=== PATIENT | female | born 1945 | race Caucasian/White ===

== ENCOUNTER 2016-11-09 21:28 | Inpatient (IN) | payer MEDICARE, OTHER ==
[2016-11-09] MEDS ORDERED: Albuterol 2.5 MG/3 ML NEB.SOL* (0.083%) INH ONE (22:07)
[2016-11-09] MEDS ORDERED: Albuterol/Ipratropium NEB.SOL* Albuterol 2.5 MG/Ipratropium 0.5 MG 3 ML INH ONE (22:07)
[2016-11-09] MEDS ORDERED: methylPREDNISolone 125 MG* 2 ML VIAL IV ONE (22:07)
[2016-11-09] MEDS ORDERED: Azithromycin IV(*) 500 MG in NS 0.9% 250 ML* 250 ML IVPB ONE (22:08)
--- NOTE | 2016-11-09 22:16 | RAD ---
INDICATION: Short of breath COMPARISON: Chest x-ray November 23, 2004 TECHNIQUE: An AP portable view obtained at 2202 hours is submitted. FINDINGS: Bones/Soft Tissues: There are no acute bony findings. Cardiomediastinal: The cardiomediastinal silhouette is normal. Lungs: There is hyperinflation with chronic interstitial changes most prominent in the apices. There is no focal consolidation.. Pleura: There are no pleural effusions. Other: None IMPRESSION: HYPERINFLATION WITH CHRONIC APPEARING APICAL INTERSTITIAL CHANGE
[2016-11-09 22:24] LABS: Hematocrit 45 % (35-47); Hemoglobin 15.1 g/dl (12.0-16.0); Mean Corpuscular HGB Conc 33 g/dl (31-36); Mean Corpuscular Hemoglobin 31 pg (27-31); Mean Corpuscular Volume 94 fL (80-97); Mean Platelet Volume 7 um3 (7.4-10.4); Red Blood Count 4.82 10^6/ul (4.0-5.4); Red Cell Distribution Width 13 % (10.5-15); White Blood Count 10.3 10^3/ul (3.5-10.8)
[2016-11-09 22:38] LABS: Albumin 4.4 g/dL (3.2-5.2); BUN/Creatinine Ratio 19.8 (8-20); Calcium 9.8 mg/dL (8.6-10.3); EGFR African American 78.6 (>60); EGFR Non-African American 61.1 (>60); Globulin 3.2 g/dL (2-4); Total Bilirubin 0.3 mg/dL (0.2-1.0); Total Protein 7.6 g/dL (6.4-8.9)
[2016-11-09 22:56] LABS: Potassium 3.9 mmol/L (3.5-5.0)
--- NOTE | 2016-11-10 00:23 | ED ---
Ana Paula Rios Adam, scribed for Isiah Luque MD on 11/09/16 at 2211 . Shortness of Breath - HPI Summary HPI Summary: A 71 y/o female presents to the ED c/o SOB that worsened today. On arrival to ED room, patient's oxygen saturation was 88%. She denies CP, fever, or lower extremity edema. On Tuesday, patient saw PCP and was given Mucinex and Fluticasone and was also presumptively diagnosed with emphysema. She started the medication today because her symptoms worsened and they have not helped. PMHx is not very significant other than the possible new diagnosis. FHx is also not significant (mother of [place] at age 92). Patient has smoked cigarettes for 50+ years and currently still smokes. - History of Current Complaint Chief Complaint: EDShortnessOfBreath Time Seen by Provider: 11/09/16 21:51 Hx Obtained From: Patient, Family/Balance Bridge Inspector - Onset/Duration: Sudden Onset, Lasting Hours - Since today Timing: Constant Current Severity: Moderate Dyspnea At: Rest Aggrevating Factors: Nothing Associated Signs & Symptoms: Wheezing - Allergy/Home Medications Allergies/Adverse Reactions: Allergies Allergy/AdvReac Type Severity Reaction Status Date / Time No Known Allergies Allergy Verified 01/31/16 15:37 PMH/Surg Hx/FS Hx/Imm Hx Endocrine/Hematology History: Denies: Hx Diabetes Respiratory History: Reports: Hx Chronic Obstructive Pulmonary Disease (COPD) - Cancer History Hx Chemotherapy: No Hx Radiation Therapy: No - Surgical History Surgery Procedure, Year, and Place: 2 c sections, 5 ortho surgeries on R hand, LEFT EYE SURGERY (REMOVE SCAR TISSUE) 2014 Infectious Disease History: No Infectious Disease History: Denies: Traveled Outside the [place] in Last 30 Days - Family History Known Family History: Positive: Other - positive [facility] for URI Negative: Diabetes - Social History Alcohol Use: Occasionally Substance Use Type: Reports: None Smoking Status (MU): Light Every Day Tobacco Smoker Type: Cigarettes Amount Used/How Often: 1/2 ppd Length of Time of Smoking/Using Tobacco: 50+ years Have You Smoked in the Last Year: Yes Review of Systems Constitutional: Negative Negative: Fever Eyes: Negative ENT: Negative Negative: Chest Pain Positive: Shortness Of Breath Gastrointestinal: Negative Genitourinary: Negative Musculoskeletal: Negative Skin: Negative Neurological: Negative Psychological: Normal All Other Systems Reviewed And Are Negative: Yes Physical Exam - Summary Physical Exam Summary: General: Comfortable, pleasant, alert HEENT: Moist mucosa Neck: soft, supple, no adenopathy, no edema, mild JVD Heart: S1, S2, RRR, no murmurs, rubs, or gallops Lungs: Tachypnea, able to talk in 3/4 sentences, poor air movement throughout, wheezing, chest tightness Abdominal: Soft, flat, nontender Extremities: No edema, no calf tenderness Neuro: Alert and oriented x 3 Psych: Logical, coherent Vital Signs On Initial Exam: Initial Vitals Temp Pulse Resp BP Pulse Ox 96.7 F 97 20 175/75 94 11/09/16 21:31 11/09/16 21:31 11/09/16 21:31 11/09/16 21:31 11/09/16 21:31 Diagnostics - Vital Signs Vital Signs Temp Pulse Resp BP Pulse Ox 11/09/16 21:31 96.7 F 97 20 175/75 94 - Laboratory Lab Results: Lab Results 11/09/16 11/09/16 11/09/16 Range/Units 22:10 22:10 22:10 WBC 10.3 (3.5-10.8) 10^3/ul RBC 4.82 (4.0-5.4) 10^6/ul Hgb 15.1 (12.0-16.0) g/dl Hct 45 (35-47) % MCV 94 (80-97) fL MCH 31 (27-31) pg MCHC 33 (31-36) g/dl RDW 13 (10.5-15) % Plt Count 257 (150-450) 10^3/ul MPV 7 L (7.4-10.4) um3 Neut % (Auto) 53.0 (38-83) % Lymph % (Auto) 34.9 (25-47) % [place] % (Auto) 5.6 (1-9) % Eos % (Auto) 5.6 (0-6) % Baso % (Auto) 0.9 (0-2) % Absolute Neuts (auto) 5.4 (1.5-7.7) 10^3/ul Absolute Lymphs (auto) 3.6 (1.0-4.8) 10^3/ul Absolute Monos (auto) 0.6 (0-0.8) 10^3/ul Absolute Eos (auto) 0.6 (0-0.6) 10^3/ul Absolute Basos (auto) 0.1 (0-0.2) 10^3/ul Absolute Nucleated RBC 0.02 10^3/ul Nucleated RBC % 0.2 Sodium 135 (133-145) mmol/L Potassium 3.9 (3.5-5.0) mmol/L Chloride 102 (101-111) mmol/L Carbon Dioxide 26 (22-32) mmol/L Anion Gap 7 (2-11) mmol/L BUN 18 (6-24) mg/dL Creatinine 0.91 (0.51-0.95) mg/dL Est GFR ( Amer) 78.6 (>60) Est GFR (Non-Af Amer) 61.1 (>60) BUN/Creatinine Ratio 19.8 (8-20) Glucose 129 H (70-100) mg/dL Lactic Acid 1.2 (0.5-2.0) mmol/L Calcium 9.8 (8.6-10.3) mg/dL Total Bilirubin 0.30 (0.2-1.0) mg/dL AST 25 (13-39) U/L ALT 16 (7-52) U/L Alkaline Phosphatase 58 (34-104) U/L Troponin I 0.00 (<0.04) ng/mL B-Natriuretic Peptide ( - 100) pg/mL Total Protein 7.6 (6.4-8.9) g/dL Albumin 4.4 (3.2-5.2) g/dL Globulin 3.2 (2-4) g/dL Albumin/Globulin Ratio 1.4 (1-3) 11/09/16 Range/Units 22:10 WBC (3.5-10.8) 10^3/ul RBC (4.0-5.4) 10^6/ul Hgb (12.0-16.0) g/dl Hct (35-47) % MCV (80-97) fL MCH (27-31) pg MCHC (31-36) g/dl RDW (10.5-15) % Plt Count (150-450) 10^3/ul MPV (7.4-10.4) um3 Neut % (Auto) (38-83) % Lymph % (Auto) (25-47) % [place] % (Auto) (1-9) % Eos % (Auto) (0-6) % Baso % (Auto) (0-2) % Absolute Neuts (auto) (1.5-7.7) 10^3/ul Absolute Lymphs (auto) (1.0-4.8) 10^3/ul Absolute Monos (auto) (0-0.8) 10^3/ul Absolute Eos (auto) (0-0.6) 10^3/ul Absolute Basos (auto) (0-0.2) 10^3/ul Absolute Nucleated RBC 10^3/ul Nucleated RBC % Sodium (133-145) mmol/L Potassium (3.5-5.0) mmol/L Chloride (101-111) mmol/L Carbon Dioxide (22-32) mmol/L Anion Gap (2-11) mmol/L BUN (6-24) mg/dL Creatinine (0.51-0.95) mg/dL Est GFR ( Amer) (>60) Est GFR (Non-Af Amer) (>60) BUN/Creatinine Ratio (8-20) Glucose (70-100) mg/dL Lactic Acid (0.5-2.0) mmol/L Calcium (8.6-10.3) mg/dL Total Bilirubin (0.2-1.0) mg/dL AST (13-39) U/L ALT (7-52) U/L Alkaline Phosphatase (34-104) U/L Troponin I (<0.04) ng/mL B-Natriuretic Peptide 187 H ( - 100) pg/mL Total Protein (6.4-8.9) g/dL Albumin (3.2-5.2) g/dL Globulin (2-4) g/dL Albumin/Globulin Ratio (1-3) Result Diagrams: 11/09/16 22:10 11/09/16 22:10 Lab Statement: Any lab studies that have been ordered have been reviewed, and results considered in the medical decision making process. - Radiology CXR Xray Interpretation: No Acute Changes - HYPERINFLATION WITH CHRONIC APPEARING APICAL INTERSTITIAL CHANGE Radiology Interpretation Completed By: Radiologist Re-Evaluation - Re-Evaluation First Eval Re-Evaluation Time: 23:47 Change: Unchanged Comment: Going to commode bedside caused her to become SOB. 86% on room air with this simple maneuver. She became extremely winded and tachycardic. Course/Dx - Course Assessment/Plan: Last week she had cough/congestion. PCP suggested she may have COPD. There is definitely clear evidience of this on Xray and exam. Now she is quite winded, hypoxic, and tachycardic with only simple maneuvers. She is requiring oxygen and she is admitted for COPD exacerbation. We have considered PE and cardiac etiology, but she has no cardiac ischemic equivalents besides SOB and this was gradual onset and she has no risk factors for PE. - Diagnoses Provider Diagnoses: SOB (shortness of breath), Cough, Wheezing on expiration - Physician Notifications Discussed Care of Patient With: Dr. Taylor (23:45, Hospitalist) - Agrees to accept patient. Discharge - Discharge Plan Condition: Stable Disposition: ADMITTED TO [facility] Referrals: Jenn Barillas MD [Primary Care Provider] - The documentation as recorded by the Ana Paula woodall Adam accurately reflects the service I personally performed and the decisions made by me, Isiah Luque MD.
--- NOTE | 2016-11-10 02:41 | HP ---
H&P (Free Text) History and Physical: PCP: Justine Barillas MD Date/Time of Evaluation: 11/10/2016 0230 CC: SOB HPI: Mrs Greenwood is a 71YO female presenting with cough since July for which she has been seen by her PCP and treated for post-nasal drip which she has and ABX and prednisone for bronchitis without resolution. The symptoms have waxed and waned without F/C, N/V/D, palpitations, chest pain, or sweats. Yesterday, however, she started becoming SOB which accelerated in the evening prompting presentation for evaluation. She had been given an albuterol inhaler, but did not try it as she was uncertain how to use. In the ED she did report improvement with albuterol nebulizer. Though she continued to desaturate into the high 80s with minimal exertion and so admission was recommended. PMedHx negative PSurgHx section x2 ORIF R hip carpal tunnel release, R trigger finger release, R DeQuervain's release, R cataract extraction, OU SocHx: ~50PYHX smoking currently at 1/2PPD, minimal alcohol, no recreational drugs; lives with her , 2 adopted and 2 biological children; full code status FamHx: reviewed, non-contributory ROS: as above, otherwise reviewed and all were negative Constitutional: NAD, normally developed, well-nourished white female vitals: Vital Signs Temp 35.9 C 11/09/16 21:31 Pulse 81 11/10/16 02:00 Resp 22 11/10/16 02:00 BP 112/54 11/10/16 02:00 Pulse Ox 96 11/10/16 02:00 Intake & Output 11/09/16 11/09/16 11/10/16 11:59 23:59 11:59 Intake Total 250 Balance 250 Weight 108 lb Intake: IV Fluids 250 HEENM: atraumatic; sclera/conjunctiva: non-icteric/clear; blephara: normal; hearing: intact; oropharynx: clear, mucosa moist Neck: soft tissue: non-tender; thyroid: normal Pulmonary: clear to auscultation bilaterally, good aeration, no accessory muscle use CV: RR/RR, normal S1S2, no carotid bruit, no jugular venous distention, 2+ B DP/ PT, no edema Abdominal: soft, non-distended, non-tender, no rebound/guarding/rigidity, normoactive bowel sounds, no hepatosplenomegaly or masses, no costovertebral angle tenderness Musculoskeletal: general: grossly intact; gait: stable Integumental: normal appearance and texture Psychiatric orientation: AA&O to PPS affect: calm mood: pleasant eye contact: good content: reliable responses: timely insight: good Testing: Lab Results 11/09/16 11/09/16 11/09/16 Range/Units 22:10 22:10 22:10 WBC 10.3 (3.5-10.8) 10^3/ul RBC 4.82 (4.0-5.4) 10^6/ul Hgb 15.1 (12.0-16.0) g/dl Hct 45 (35-47) % MCV 94 (80-97) fL MCH 31 (27-31) pg MCHC 33 (31-36) g/dl RDW 13 (10.5-15) % Plt Count 257 (150-450) 10^3/ul MPV 7 L (7.4-10.4) um3 Neut % (Auto) 53.0 (38-83) % Lymph % (Auto) 34.9 (25-47) % [place] % (Auto) 5.6 (1-9) % Eos % (Auto) 5.6 (0-6) % Baso % (Auto) 0.9 (0-2) % Absolute Neuts (auto) 5.4 (1.5-7.7) 10^3/ul Absolute Lymphs (auto) 3.6 (1.0-4.8) 10^3/ul Absolute Monos (auto) 0.6 (0-0.8) 10^3/ul Absolute Eos (auto) 0.6 (0-0.6) 10^3/ul Absolute Basos (auto) 0.1 (0-0.2) 10^3/ul Absolute Nucleated RBC 0.02 10^3/ul Nucleated RBC % 0.2 Sodium 135 (133-145) mmol/L Potassium 3.9 (3.5-5.0) mmol/L Chloride 102 (101-111) mmol/L Carbon Dioxide 26 (22-32) mmol/L Anion Gap 7 (2-11) mmol/L BUN 18 (6-24) mg/dL Creatinine 0.91 (0.51-0.95) mg/dL Est GFR ( Amer) 78.6 (>60) Est GFR (Non-Af Amer) 61.1 (>60) BUN/Creatinine Ratio 19.8 (8-20) Glucose 129 H (70-100) mg/dL Lactic Acid 1.2 (0.5-2.0) mmol/L Calcium 9.8 (8.6-10.3) mg/dL Total Bilirubin 0.30 (0.2-1.0) mg/dL AST 25 (13-39) U/L ALT 16 (7-52) U/L Alkaline Phosphatase 58 (34-104) U/L Troponin I 0.00 (<0.04) ng/mL B-Natriuretic Peptide ( - 100) pg/mL Total Protein 7.6 (6.4-8.9) g/dL Albumin 4.4 (3.2-5.2) g/dL Globulin 3.2 (2-4) g/dL Albumin/Globulin Ratio 1.4 (1-3) //17 Range/Units 22:10 WBC (3.5-10.8) 10^3/ul RBC (4.0-5.4) 10^6/ul Hgb (12.0-16.0) g/dl Hct (35-47) % MCV (80-97) fL MCH (27-31) pg MCHC (31-36) g/dl RDW (10.5-15) % Plt Count (150-450) 10^3/ul MPV (7.4-10.4) um3 Neut % (Auto) (38-83) % Lymph % (Auto) (25-47) % [place] % (Auto) (1-9) % Eos % (Auto) (0-6) % Baso % (Auto) (0-2) % Absolute Neuts (auto) (1.5-7.7) 10^3/ul Absolute Lymphs (auto) (1.0-4.8) 10^3/ul Absolute Monos (auto) (0-0.8) 10^3/ul Absolute Eos (auto) (0-0.6) 10^3/ul Absolute Basos (auto) (0-0.2) 10^3/ul Absolute Nucleated RBC 10^3/ul Nucleated RBC % Sodium (133-145) mmol/L Potassium (3.5-5.0) mmol/L Chloride (101-111) mmol/L Carbon Dioxide (22-32) mmol/L Anion Gap (2-11) mmol/L BUN (6-24) mg/dL Creatinine (0.51-0.95) mg/dL Est GFR ( Amer) (>60) Est GFR (Non-Af Amer) (>60) BUN/Creatinine Ratio (8-20) Glucose (70-100) mg/dL Lactic Acid (0.5-2.0) mmol/L Calcium (8.6-10.3) mg/dL Total Bilirubin (0.2-1.0) mg/dL AST (13-39) U/L ALT (7-52) U/L Alkaline Phosphatase (34-104) U/L Troponin I (<0.04) ng/mL B-Natriuretic Peptide 187 H ( - 100) pg/mL Total Protein (6.4-8.9) g/dL Albumin (3.2-5.2) g/dL Globulin (2-4) g/dL Albumin/Globulin Ratio (1-3) ECG, personally reviewed: NSR, RBBB rate 87, no ischemia CXR, personally reviewed: IMPRESSION: HYPERINFLATION WITH CHRONIC APPEARING APICAL INTERSTITIAL CHANGE Impression: 71F presenting with a COPD exacerbation DIAGNOSIS & PLAN Primary COPD exacerbation : albuterol nebs : mometasone/formoterol : tiotropium : IV methylprednisolone : azithromycin PO : guaifenesin : incentive spirometry : supplemental oxygen : supportive care Admission Rational: inpatient for management of COPD exacerbation and close monitoring for decompensation, inappropriate for outpatient setting DVTp: heparin SQ Code Status: full HCP:
[2016-11-10] MEDS ORDERED: Nicotine Inhaler* 10 MG AMP INH PRN (05:35)
[2016-11-10] MEDS ORDERED: CMC:Melatonin (NF) 3 MG TAB PO PRN (05:35)
[2016-11-10] MEDS ORDERED: Albuterol 2.5 MG/3 ML NEB.SOL* (0.083%) INH PRN (05:35)
[2016-11-10] MEDS ORDERED: Acetaminophen TAB* 325 MG PO PRN (05:35)
[2016-11-10] MEDS ORDERED: Ondansetron INJ* 2 MG/ML VIAL IV PRN (05:36)
[2016-11-10] MEDS ORDERED: traMADol TAB* 50 MG PO PRN (05:36)
[2016-11-10] MEDS ORDERED: Mouth Piece, Nicotine* 1 EACH CARTRIDGE INH ONE (06:05)
[2016-11-10] MEDS: Omeprazole CAP* 20 MG PO SCH (06:32)
[2016-11-10] MEDS ORDERED: Spiriva Inhaler DEVICE* 1 EACH DEVICE INH ONE (08:00)
[2016-11-10] MEDS: Albuterol 2.5 MG/3 ML NEB.SOL* (0.083%) INH SCH ×3 (08:12→20:08)
[2016-11-10] MEDS: Tiotropium CAP.INH* CAP.INH/18 MCG (USE ORDER SET !) INH SCH (08:13)
[2016-11-10] MEDS: Mometasone/Formoter 200/5 MDI INH SCH ×2 (08:17→20:34)
[2016-11-10] MEDS: Aspirin EC Low Dose* 81 MG TAB.EC PO SCH (08:43)
[2016-11-10] MEDS: Docusate CAP* 100 MG PO SCH ×2 (08:44→20:06)
--- NOTE | 2016-11-10 19:54 | PN ---
Hospitalist Progress Note HOSPITALIST ADDENDUM Patient seen and examined at bedside. She feels much better today, still with some dyspnea, but improved. Chest: BS+ bilaterally with scattered wheeze on the left. A/P: Acute COPD exacerbation secondary to bronchitis. Continue current management.
[2016-11-11] MEDS: Albuterol 2.5 MG/3 ML NEB.SOL* (0.083%) INH SCH ×3 (00:53→12:19)
[2016-11-11] MEDS ORDERED: Heparin VIAL(*) 5000 UNITS/ML VIAL (FIVE THOUSAND) SUBCUT SCH (06:00)
[2016-11-11] MEDS: Omeprazole CAP* 20 MG PO SCH (07:17)
[2016-11-11] MEDS: Tiotropium CAP.INH* CAP.INH/18 MCG (USE ORDER SET !) INH SCH (07:24)
[2016-11-11] MEDS: Mometasone/Formoter 200/5 MDI INH SCH (07:24)
[2016-11-11] MEDS: Docusate CAP* 100 MG PO SCH (08:23)
[2016-11-11] MEDS: Aspirin EC Low Dose* 81 MG TAB.EC PO SCH (08:56)
[2016-11-11] MEDS ORDERED: methylPREDNISolone SOD 40 MG* 1 ML VIAL IV SCH (09:00)
[2016-11-11 12:25] VITALS: BP 146/76
--- NOTE | 2016-11-12 12:41 | DS ---
DISCHARGE SUMMARY: DATE OF ADMISSION: 11/10/16 DATE OF DISCHARGE: 11/11/16 PRIMARY CARE PROVIDER: Dr. Barillas. DISCHARGE DIAGNOSIS: Acute chronic obstructive pulmonary disease exacerbation secondary to bronchitis. SECONDARY DIAGNOSIS: Tobacco abuse. MEDICATION LIST: 1. Multivitamin 1 tablet p.o. daily. 2. Fluticasone nasal spray 1 spray to both nares daily. 3. Aspirin 81 mg p.o. daily. New medications: 1. Prednisone taper as follows, 40 mg p.o. daily for 3 days, then 30 mg for 3 days, 20 mg for 3 days, 10 mg for 3 days, 5 mg for 3 days, and stop. 2. Spiriva 1 capsule inhaled daily. 3. Nicotine patch 21 mg topical daily, remove at bedtime. 4. Nicotine inhaler 10 mg inhaled q. 2 hours p.r.n. cravings. 5. Advair 250/50 one puff inhaled b.i.d. 6. Albuterol HFA 2 puffs inhaled q. 6 hours as needed for shortness of breath. HOSPITAL COURSE: Ms. Greenwood is a 71-year-old lady with a past medical history as stated above, who presented to the emergency room on November 09 with complaint of shortness of breath and cough. She has had respiratory symptoms since July on and off that started with upper respiratory symptoms including nasal congestion, postnasal drip, and the symptoms have waxed and waned. She had been treated with azithromycin and prednisone as outpatient with some relief , but the day of admission, the shortness of breath became more intense and prompted the ED visit. For more details about her presentation, I refer you to her history and physical. In the emergency room, the patient had a chest x-ray that showed hyperinflation with chronic appearing apical interstitial change. The impression was that she had an acute COPD exacerbation secondary to bronchitis. She did not appear to be infected at this time and she responded well to steroids and bronchodilators. She does not require supplemental oxygen and has had significant improvement of her cough and dyspnea. At this time, she will be discharged home to complete the steroid taper. She will have long-acting and short-acting beta-agonist inhaled steroids and anticholinergic drugs and when this episode is resolved, the patient would benefit of spirometry as outpatient and I also believe that with her smoking history of more than [address] years, a CT of the chest is also indicated. The patient was counseled about tobacco cessation and she is willing to try. She is being discharged with nicotine patch and nicotine inhaler as she is motivated at this time to succeed. She is medically stable at this time, to follow up with Dr. Barillas as an outpatient. PHYSICAL EXAMINATION: Vital Signs: Temperature 98.1, heart rate is 76, respiratory rate is 14, oxygen saturation 99% on room air, blood pressure is 146 /76. General: The patient is a pleasant lady, sitting up in bed, in no acute distress. CVS: Normal S1, S2. Regular rate and rhythm. Chest: Breath sounds present bilaterally decreased with no added sounds. Abdomen: Soft. Bowel sounds present. Extremities: No edema. Neuro: She is alert, awake, and oriented x3. Able to move all 4 extremities. DIET: Regular diet. ACTIVITY: As tolerated. DISPOSITION: To home. STATUS WHILE IN THE HOSPITAL: Observation. Please keep in mind that this is a summarized version of this patient's hospital stay. If you need more information, please feel free to call me at or please obtain the full medical records. TIME SPENT: Approximately 45 minutes was spent to complete this discharge. CC: Dr. Barillas * [id number]/CPS #: [id number] [place]
== END 2016-11-11 14:15 | disposition home or self-care (01) | DRG 192 ==
LOC: ED 21:28 → MEDTELE 11-10 05:34 → MED 11-10 16:40
PROVIDERS: ADMIT Hospitalist; ATTEND Internal Medicine
DX: J44.1 Chronic obstructive pulmonary disease with (acute) exacerbation (principal); F17.210 Nicotine dependence, cigarettes, uncomplicated; J20.9 Acute bronchitis, unspecified; J44.0 Chronic obstructive pulmonary disease with (acute) lower respiratory infection; Z82.49 Family history of ischemic heart disease and other diseases of the circulatory system; Z98.42 Cataract extraction status, left eye; Z98.41 Cataract extraction status, right eye; Z79.82 Long term (current) use of aspirin
CPT/HCPCS: 36415; 71010; 80053; 83605; 83880; 84484; 85025; 93005; 94640; 94760; 99406; A9270-GY; J0456; J1644; J2920; J2930

== ENCOUNTER 2017-05-09 12:13 | Emergency (ER) | payer MEDICARE, OTHER ==
[2017-05-09 13:49] VITALS: BP 145/89
--- NOTE | 2017-05-09 14:39 | RAD ---
HISTORY: Trigger finger COMPARISONS: None VIEWS: 3, Frontal, lateral, and oblique views of the digit of the left hand FINDINGS: Evaluation is limited as of the fourth PIP joint is held in flexion. BONE DENSITY: Normal. BONES: There is no displaced fracture. JOINTS: There is osteoarthritis of the interphalangeal joints. ALIGNMENT: There is no dislocation. The fourth PIP joint is held in flexion. SOFT TISSUES: Unremarkable. OTHER FINDINGS: None. IMPRESSION: 1. LIMITED STUDY. 2. THE FOURTH PIP JOINT IS HELD IN FLEXION. 3. OSTEOARTHRITIS OF THE INTERPHALANGEAL JOINTS. 4. NO ACUTE OSSEOUS INJURY. IF SYMPTOMS PERSIST, RECOMMEND REPEAT IMAGING
[2017-05-09] MEDS ORDERED: Lidocaine 2% PF * 5 ML VIAL INJ ONE (15:05)
--- NOTE | 2017-05-09 16:14 | RAD ---
Indication: Post reduction LEFT trigger finger. Comparison: Prereduction exam of the same date. Technique: AP, lateral, and oblique views of the LEFT fourth finger. Report: Restored anatomic alignment post reduction. Negative for fracture. Bone density appears decreased corresponding with osteoporosis on prior 2010 DEXA scan. Mild osteoarthritis at the visualized interphalangeal joints. Unremarkable soft tissue contours. IMPRESSION: Restored alignment postreduction. Negative for fracture.
--- NOTE | 2017-05-09 17:05 | UC ---
Hand/Wrist HPI - HPI Summary HPI Summary: TRIGGER FINGER LEFT RING FINGER. HAS HAD TRIGGER FINGER CONCERNS FOR 18 YEARS. OVER THE LAST TWO DAYS, HAS BEEN UNABLE TO UNFLEX LEFT 4TH FINGER. CALLED DR MILLER'S OFFICE WAS TOLD TO COME HERE AND TO GET XRAY. - History Of Current Complaint Chief Complaint: UCUpperExtremity Stated Complaint: HAND COMPLAINT Time Seen by Provider: 05/09/17 13:51 Hx Obtained From: Patient Onset/Duration: Sudden Onset, Lasting Days, Still Present Severity Initially: Moderate Severity Currently: Moderate Pain Intensity: 4 Pain Scale Used: 0-10 Numeric Character Of Pain: Sharp, Aching Aggravating Factor(s): Movement, Extension, Twisting, Pulling Alleviating: Nothing Associated Signs And Symptoms: Positive: Negative Related History: Dominant Hand Right - Allergies/Home Medications Allergies/Adverse Reactions: Allergies Allergy/AdvReac Type Severity Reaction Status Date / Time No Known Allergies Allergy Verified 01/31/16 15:37 PMH/Surg Hx/FS Hx/Imm Hx Previously Healthy: Yes - Surgical History Surgical History: Yes Surgery Procedure, Year, and Place: 2 c sections, 5 ortho surgeries on R hand, LEFT EYE SURGERY (REMOVE SCAR TISSUE) 2015. Right hip surgury 2002 - Family History Known Family History: Positive: Other - positive [facility] for URI Negative: Diabetes - Social History Occupation: Retired Lives: With Family Alcohol Use: None Substance Use Type: None Smoking Status (MU): Former Smoker Type: Cigarettes Amount Used/How Often: 1/2 ppd Length of Time of Smoking/Using Tobacco: 53 years Have You Smoked in the Last Year: Yes - Immunization History Most Recent Influenza Vaccination: "long time ago" Most Recent Tetanus Shot: unk Most Recent Pneumonia Vaccination: never Review of Systems Constitutional: Negative Skin: Negative Eyes: Negative ENT: Negative Respiratory: Negative Cardiovascular: Negative Gastrointestinal: Negative Genitourinary: Negative Motor: Negative Neurovascular: Negative Musculoskeletal: Arthralgia - LEFT 4TH FINGER, Myalgia - LEFT 4TH FINGER Neurological: Negative Psychological: Negative All Other Systems Reviewed And Are Negative: Yes Physical Exam Triage Information Reviewed: Yes Appearance: Well-Appearing, No Pain Distress, Well-Nourished Vital Signs: Initial Vital Signs Temp 98 F 05/09/17 13:45 Pulse 76 05/09/17 13:45 Resp 16 05/09/17 13:45 BP 145/89 05/09/17 13:45 Pulse Ox 98 05/09/17 13:45 Vital Signs Reviewed: Yes Eye Exam: Normal ENT Exam: Normal ENT: Positive: Normal ENT inspection, Hearing grossly normal, TMs normal Dental Exam: Normal Neck exam: Normal Neck: Positive: Supple, Nontender Respiratory Exam: Normal Respiratory: Positive: Chest non-tender, Lungs clear, Normal breath sounds, No respiratory distress, No accessory muscle use Cardiovascular Exam: Normal Cardiovascular: Positive: RRR, No Murmur, Pulses Normal Abdominal Exam: Normal Musculoskeletal: Positive: Strength Limited @ - LEFT 4TH FINGER TRIGGER FINGER, ROM Limited @ - LEFT 4TH FINGER Neurological Exam: Normal Psychological Exam: Normal Skin Exam: Normal Procedures - Procedure Summary Procedure Summary: REDUCTION OF LEFT 4TH FINGER TRIGGER FINGER USING DIGITAL BLOCK (2% LIDO) AND MANUAL EXTENSION; PATIENT SPLINTED AFTER PROCEDURE Hand/Wrist Course/Dx - Differential Dx/Diagnosis Differential Diagnosis/HQI/PQRI: Fracture, Sprain, Strain, Tendonitis Provider Diagnoses: LEFT FOURTH FINGER TRIGGER FINGER WITH REDUCTION Discharge - Discharge Plan Condition: Stable Disposition: HOME Patient Education Materials: Trigger Finger (ED) Referrals: Jenn Barillas MD [Primary Care Provider] - Chelsey Miller MD [Medical Doctor] -
== END 2017-05-09 16:41 | disposition home or self-care (01) ==
LOC: UCEAST 12:13
DX: M65.342 Trigger finger, left ring finger (principal); Z87.891 Personal history of nicotine dependence
CPT/HCPCS: 26720; 73140; 99212; G0463

== ENCOUNTER 2017-05-13 06:29 | Day surgery (SDC) | payer MEDICARE, OTHER ==
--- NOTE | 2017-05-11 15:52 | HP ---
PREOPERATIVE HISTORY AND PHYSICAL: DATE OF ADMISSION/SURGERY: 05/13/17 DATE OF OFFICE VISIT/ENCOUNTER: 05/11/17 ATTENDING SURGEON: Chelsey Moralez MD * (DICTATED BY ENMANUEL MENDOZA) PROCEDURE: Left ring finger trigger finger release, ganglion cyst excision. CHIEF COMPLAINT: Left ring finger triggering, cyst. HISTORY OF PRESENT ILLNESS: This is a 71-year-old female, who complains of triggering in her left ring finger for approximately 17 years. She has managed it conservatively but it has worsened over time and recently the finger got stuck in a flexed position and the patient ended up going to convenient care to have the finger anesthetized and straightened. She has been wearing a splint on the finger for a couple of days, which helped to make the finger feel better. She has had trigger finger releases performed on the right hand and the symptoms in her left ring finger are significant enough that she would like to proceed with surgical intervention to correct the problem. She is also complaining of a small cyst in the area of the flexor tendon near the A1 konrad. She would also like to have that removed. She has consented to proceed with surgery. PAST MEDICAL HISTORY: Significant for COPD. PAST SURGICAL HISTORY: 1. x2. 2. Right carpal tunnel release. 3. Right de Quervain's release. 4. Right hand finger trigger finger releases. 5. Tonsillectomy. 6. Bilateral cataract surgery. CURRENT MEDICATIONS: 1. Albuterol sulfate nebulizer 1 treatment q.4 hours p.r.n. 2. Aspirin low dose 81 mg 1 tab daily. 3. Flonase Allergy Relief 50 mcg/ACT 1 spray each nostril twice daily. 4. Multivitamin daily. 5. Spiriva HandiHaler 18 mcg 1 unit inhalation daily. 6. Symbicort 80/4.5 mcg/ACT 2 puffs twice a day. ALLERGIES: No known drug allergies. FAMILY MEDICAL HISTORY: Significant for heart disease and hypertension. SOCIAL HISTORY: The patient is retired. 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 She is a former smoker; she quit in October of 2002 after being diagnosed with COPD. Prior to that, she smoked for 53 years. She denies recreational drug use. She does admit to alcohol use on occasion. REVIEW OF SYSTEMS: General: Negative for fevers, chills, or night sweats. No known anesthesia problems. HEENT: Negative for headache, lightheadedness, or syncopal episodes. Integumentary: Negative for abrasions, lesions, or open wounds. Cardiothoracic: Negative for hypertension, chest pain, palpitations, or edema. Pulmonary: Positive for shortness of breath with exertion and COPD. Negative for chronic cough. GI: Negative for nausea, vomiting, diarrhea, constipation, or GERD. : Negative for nocturia, urinary frequency, urgency, history of UTIs, or kidney problems. Musculoskeletal: Positive for current complaint. Negative for chronic or intermittent back pain or history of fractures. Neurological: Negative for paresthesias, numbness, history of seizure, stroke, or epilepsy. Endocrine: Negative for diabetes or thyroid issues. Hematologic: Negative for easy bruising, anemia, excessive bleeding, or history of DVT. Infectious Disease: Negative for history of MRSA, hepatitis C, or HIV. PHYSICAL EXAMINATION GENERAL: Well-developed, well-nourished, 71-year-old female in no acute distress. VITAL SIGNS: Height is 5 feet, weight 130 pounds, pulse rate 72, blood pressure 134/84. HEENT: Normocephalic, atraumatic. Pupils are equal, round, and reactive to light and accommodation. Extraocular movements are intact. NECK: Supple. No palpable lymph nodes. Throat is clear. PULMONARY: Lungs are clear to auscultation bilaterally. No wheezes, rales, or rhonchi. CARDIOVASCULAR: Regular rate and rhythm. S1, S2. No murmurs, rubs, or gallops. No edema. ABDOMEN: Positive bowel sounds, soft, nontender. MUSCULOSKELETAL: On exam of her left ring finger, there is mild swelling along the length of the finger. Tender to palpation at the A1 konrad and there is a palpable small cyst in that area as well that is very tender. The patient has difficulty flexing the finger but does have full extension. Neurovascular function is intact. NEUROLOGICAL: Alert and oriented x3. Cranial nerves II through XII are intact. Sensation is intact to light touch. DIAGNOSTIC DATA: Imaging studies of the left ring finger are unremarkable for any osseous abnormalities, no sign of fracture or dislocation. IMPRESSION: Left ring finger trigger finger, ganglion cyst. PLAN: The patient is scheduled to undergo a left ring finger trigger finger release, ganglion cyst excision with Dr. Moralez on 07/28/17. She will return to the office 10 to 14 days postop for followup and suture removal. A prescription for Ultracet was e-scribed to the patient's pharmacy for postoperative pain management. ENMANUEL MENDOZA [id number]/[facility] #: [id number] MTDZach
[~2017-05-13 06:29] MED LIST: Buffered Lidocaine 0.9% SYRIN* 5 ML/SYR SYRINGE INTRADERM ONE
[2017-05-13] MEDS ORDERED: Buffered Lidocaine 0.9% SYRIN* 5 ML/SYR SYRINGE ONE (06:40)
[2017-05-13] MEDS ORDERED: Lidocaine 1% INJ* 10 MG/ML 30 ML SDV ONE (07:19)
[2017-05-13] MEDS ORDERED: Lidocaine 2% PF * 5 ML VIAL ONE (07:46)
[2017-05-13] MEDS ORDERED: Propofol* 10 MG/ML 20 ML BTL IV PUSH ONE (07:46)
[2017-05-13] MEDS ORDERED: fentaNYL* 50 MCG/ML 2 ML VIAL (100 MCG VIAL) ONE (07:47)
[2017-05-13 08:22] VITALS: BP 126/74
--- NOTE | 2017-05-14 04:26 | OP ---
DATE OF OPERATION: 05/13/17 [facility] DATE OF : 47 SURGEON: Chelsey Moralez MD PAEDIATRICIAN: ENMANUEL Vargas ANESTHESIA: Local MAC. PRE-OP DIAGNOSIS: Trigger finger and ganglion cyst of the left ring finger. POST-OP DIAGNOSIS: Trigger finger and ganglion cyst of the left ring finger. OPERATIVE PROCEDURE: Trigger finger release, ganglion cyst excision, left ring finger. ESTIMATED BLOOD LOSS: Zero. TOURNIQUET TIME: About 10 minutes. INDICATIONS FOR PROCEDURE: Rowan is a 71-year-old female who has painful locking and a painful mass in her left ring finger. She presents for trigger finger release and ganglion cyst excision. DESCRIPTION OF PROCEDURE: The patient was brought to the operating room, was given a sedation anesthetic and a local infiltration of 10 cc of 1% plain lidocaine in the palm of her left hand. The skin of the left hand and forearm was prepped and draped in the usual sterile fashion. The hand and forearm were exsanguinated and the tourniquet elevated to 250 mmHg. A Chevron incision was made, centered over the A1 konrad and the mass. We dissected bluntly through the subcutaneous tissue. There was a ganglion cyst emanating from the flexor tendon sheath. It was removed with a small portion of the tendon sheath. The A1 konrad was then incised completely releasing the tendons, which had some abrasion as a result of the long- term triggering. The wound was irrigated and the skin edges were reapproximated with 4-0 nylon suture. The wound was dressed with Xeroform, 4x4, Webril, and an Brayan wrap. The patient tolerated the procedure well, was brought to the recovery room in good condition. [id number]/[facility] #: [id number] [facility]
== END 2017-05-13 08:43 | disposition home or self-care (01) ==
LOC: OREAST 06:29
PROVIDERS: ATTEND Orthopaedic Surgery
DX: M67.442 Ganglion, left hand (principal); M65.342 Trigger finger, left ring finger; J44.9 Chronic obstructive pulmonary disease, unspecified; Z87.891 Personal history of nicotine dependence
CPT/HCPCS: 88304; J2001; J2704; J3010

== ENCOUNTER 2018-11-25 16:30 | Emergency (ER) | payer MEDICARE ==
--- OUTSIDE RECORDS SUMMARY | 2018-11-25 16:54 | XMS REPORT | Continuity of Care Document ---
:1945 External Reference #:[id number] Author Name Miguelina Hankins PA-C Address [address] [facility] [place] [address] Care Team Providers Name Role Phone Jenn Barillas MD Care Team Information Journeyman Electrician Pv Installer Unavailable Jenn Barillas MD Primary Care Physician Unavailable Payers Type Date Identification Numbers Payment Provider Subscriber Policy Number: [id number] [employer] Medicare Open Rowan Greenwood PayID: [id number] [address] [place] [address] Advance Directives Description No Information Available Problems Date Description Provider Status Onset: 10/24/2018 Left upper quadrant pain Miguelina Hankins PA-C Active Onset: 10/24/2018 Epigastric pain Miguelina Hankins PA-C Active Family History Description No Information Available Social History Type Date Description Comments Sex Unknown Tobacco Use Start: Unknown End: Unknown Patient is a former smoker Smoking Status Reviewed: 10/24/18 Patient is a former smoker Allergies, Adverse Reactions, Alerts Description No Known Drug Allergies Medications Medication Date Status Form Strength Qnty SIG Indications Ordering Provider Omeprazole 10/24/ Active Capsules DR 20mg 30caps 1 cap by R10.13 Isael 2019 mouth Arnaldo, daily 30 DO minutes before breakfast Albuterol / Active Nebulizer 0.63mg/3ML Inhale The Unknown Sulfate 0000 Contents Of 1 Vial Via Nebulizer Two Times Daily Incruse / Active Aerosol 62.5mcg/In Inhale 1 Unknown Ellipta 0000 h puff By Mouth Every Day Symbicort / Active Aerosol 80-4.5mcg/ Inhale 2 Unknown 0000 Act Puffs By Mouth Two Times Daily Ventolin HFA / Active Aerosol 108(90Base Inhale 2 Unknown 0000 ) mcg/Act Puffs By Mouth Every 4 To 6 Hours as Needed Fluticasone / Active Suspension 50mcg/Act Coy 2 Unknown Propionate 0000 Sprays Into Each Nostril Every Day Omeprazole / Hx Capsules DR 20mg Take 1 Unknown 0000 - Capsule By 2019 Every Day Immunizations Description No Information Available Vital Signs Date Vital Result Comment 10/24/2018 10:36am Height 60 inches 5'0" Weight 146.00 lb BP Systolic 140 mmHg BP Diastolic 84 mmHg Heart Rate 68 /min BMI (Body Mass Index) 28.5 kg/m2 Results Test Date Facility Test Result H/L Range Note Laboratory test 10/24/2018 [facility] [place] Pylori Negative Negative 1 finding Antigen- Stool 1 Test Performed by: [address] [address] Procedures Description No Information Available Encounters Description No Information Available Plan of Treatment 10/24/2018 - ENMANUEL Petty-CR10.13 Epigastric painNew Medication: Omeprazole 20 mg - 1 cap by mouth daily 30 minutes before lwxfvppanG57.12 Left upper quadrant pain
--- NOTE | 2018-11-25 20:20 | ED ---
GI/ HPI - HPI Summary HPI Summary: This patient is a 73 year old F presenting to [facility] accompanied by her , Travon, with a chief complaint of worsening intermittent, sharp, right-sided flank pain radiating to her back since this afternoon. The pain lasts for about three seconds at a time. The patient rates the pain 9/10 in severity. Patient reports dysuria higher in the bladder. Denies fever. She says that her left side has been bothering her for the last two months, which her doctor believes is muscle related, but this pain has been better lately. She had a CT of her chest last 5 days ago at [facility] for her COPD. PMHX COPD. No PMHx kidney stones. - History of Current Complaint Chief Complaint: EDFlankPain Time Seen by Provider: 11/25/18 20:09 Stated Complaint: FLANK PAIN Hx Obtained From: Patient Onset/Duration: Started Hours Ago Timing: Intermittent, Lasting Seconds - 3 Severity: Severe Current Severity: Mild Pain Intensity: 9 Location of Pain: Flank - right Pain Characteristics: Sharp Pain Radiates to: Back Associated Signs and Symptoms: Positive: Dysuria, Flank Pain - right - Additional Pertinent History Primary Care Physician: CHARITY - Allergy/Home Medications Allergies/Adverse Reactions: Allergies Allergy/AdvReac Type Severity Reaction Status Date / Time No Known Allergies Allergy Verified 11/25/18 16:46 Home Medications: Home Medications Omeprazole 20 mg PO DAILY 11/25/18 [History Confirmed 11/25/18] PMH/Surg Hx/FS Hx/Imm Hx Endocrine/Hematology History: Denies: Hx Diabetes Cardiovascular History: Reports: Other Cardiovascular Problems/Disorders - aortic intimal coronary calcification from CT scan 2017 Respiratory History: Reports: Hx Chronic Obstructive Pulmonary Disease (COPD), Other Respiratory Problems/Disorders - CT scan showed aortic intimal coronary alcification Musculoskeletal History: Reports: Hx Tendonitis - D'Quervains release done Sensory History: Reports: Hx Contacts or Glasses - glasses Denies: Hx Hearing Aid Opthamlomology History: Reports: Hx Contacts or Glasses - glasses - Cancer History Hx Chemotherapy: No Hx Radiation Therapy: No - Surgical History Surgery Procedure, Year, and Place: 2 c-sections, 5 ortho surgeries on R hand, LEFT EYE SURGERY (REMOVE SCAR TISSUE) 2014. Right hip surgery repair 2002, bilat cataract surgery with IOL 2010, tonsillectomy 1958, 1 surgery on L hand, tonsils Hx Anesthesia Reactions: No Infectious Disease History: No Infectious Disease History: Denies: Hx Clostridium Difficile, Hx Hepatitis, Hx Human Immunodeficiency Virus (HIV), Hx of Known/Suspected MRSA, Hx Shingles, Hx Tuberculosis, Hx Known/ Suspected VRE, Hx Known/Suspected VRSA, History Other Infectious Disease, Traveled Outside the [place] in Last 30 Days - Family History Known Family History: Positive: Other - positive FMH for URI Negative: Diabetes - Social History Alcohol Use: Occasionally Substance Use Type: Reports: None Smoking Status (MU): Former Smoker Type: Cigarettes Amount Used/How Often: 1ppd, smoked for 53 years Length of Time of Smoking/Using Tobacco: 53 years Have You Smoked in the Last Year: Yes Review of Systems Negative: Fever Positive: dysuria, flank pain - right All Other Systems Reviewed And Are Negative: Yes Physical Exam - Summary Physical Exam Summary: VITAL SIGNS: Reviewed. GENERAL: Patient is a well-developed and nourished female who is lying comfortable in the stretcher. Patient is not in any acute respiratory distress. HEAD AND FACE: No signs of trauma. No ecchymosis, hematomas or skull depressions. No sinus tenderness. EYES: PERRLA, EOMI x 2, No injected conjunctiva, no nystagmus. EARS: Hearing grossly intact. Ear canals and tympanic membranes are within normal limits. MOUTH: Oropharynx within normal limits. NECK: Supple, trachea is midline, no adenopathy, no JVD, no carotid bruit, no c- spine tenderness, neck with full ROM. CHEST: Symmetric, no tenderness at palpation LUNGS: Clear to auscultation bilaterally. No wheezing or crackles. CVS: Regular rate and rhythm, S1 and S2 present, no murmurs or gallops appreciated. ABDOMEN: Soft, non-tender. No signs of distention. No rebound no guarding, and no masses palpated. Bowel sounds are normal. EXTREMITIES: FROM in all major joints, no edema, no cyanosis or clubbing. NEURO: Alert and oriented x 3. No acute neurological deficits. Speech is normal and follows commands. SKIN: Dry and warm Triage Information Reviewed: Yes Vital Signs On Initial Exam: Initial Vitals Temp Pulse Resp BP Pulse Ox 97.5 F 84 18 165/100 99 11/25/18 16:39 11/25/18 16:39 11/25/18 16:39 11/25/18 16:39 11/25/18 16:39 Vital Signs Reviewed: Yes Diagnostics - Vital Signs Vital Signs Temp Pulse Resp BP Pulse Ox 11/25/18 18:40 97.6 F 70 16 205/98 99 11/25/18 16:39 97.5 F 84 18 165/100 99 - Laboratory Result Diagrams: 11/25/18 20:36 11/25/18 20:36 Lab Statement: Any lab studies that have been ordered have been reviewed, and results considered in the medical decision making process. - CT Abd/Pelvis CT Interpretation Completed By: Radiologist Summary of CT Findings: 1. No CT findings to correlate with patient's symptomatology. Specifically no. obstructing renal or ureteral calculi. 2. Emphysema with left lower lobe pulmonary nodule. No followup indicated. 3. Distal colonic diverticulosis. ED physician has reviewed this report. GIGU Course/Dx - Course Course Of Treatment: This patient is a 73 year old F presenting to [facility] accompanied by her , Travon, with a chief complaint of worsening intermittent, sharp, right-sided flank pain radiating to her back since this afternoon. The pain lasts for about three seconds at a time. The patient rates the pain 9/10 in severity. Patient reports dysuria higher in the bladder.. Abd/Pelvis CT reveals, per radiologist, 1. No CT findings to correlate with patient's symptomatology. Specifically no. obstructing renal or ureteral calculi. 2. Emphysema with left lower lobe pulmonary nodule. No followup indicated. 3. Distal colonic diverticulosis. ED physician has reviewed this radiology report. Test results with no significant abnormalities. In the ED course the patient was given Alprazolam. Patient will be discharged with follow up from Dr. De La Garza. The patient is agreeable with this plan. - Diagnoses Provider Diagnoses: Microscopic hematuria Discharge - Sign-Out/Discharge Documenting (check all that apply): Patient Departure - discharge Patient Received Moderate/Deep Sedation with Procedure: No - Discharge Plan Condition: Stable Disposition: HOME Patient Education Materials: Hematuria (ED) Referrals: Reji De La Garza MD [Medical Doctor] - 2 Days Additional Instructions: Follow up with your Dr. De La Garza in 1-3 days. RETURN TO THE EMERGENCY DEPARTMENT FOR CHANGING OR WORSENING SYMPTOMS. - Billing Disposition and Condition Condition: STABLE Disposition: Home - Attestation Statements Document Initiated by Scribe: Yes Documenting Scribe: Colton Tadeo Provider For Whom Scribe is Documenting (Include Credential): Mraco Turner MD Scribe Attestation: I, Colotn Tadeo, scribed for Maroc Turner MD on 11/26/18 at 2118. Scribe Documentation Reviewed: Yes Provider Attestation: The documentation as recorded by the rodgeribeColton accurately reflects the service I personally performed and the decisions made by me, Marco Turner MD Status of Scribe Document: Viewed
[2018-11-25] MEDS ORDERED: ALPRAZolam TAB* 0.5 MG PO ONE (20:29)
[2018-11-25 20:45] LABS: ABS Basophils 0.1 10^3/ul (0-0.2); ABS Eosinophils 0.3 10^3/ul (0-0.6); ABS Monocytes 0.7 10^3/ul (0-0.8); ABS Neutrophils 3.8 10^3/ul (1.5-7.7); ABS Nucleated RBC 0 10^3/ul; Eosinophil % 3.3 %; Hematocrit 41 % (35-47); Hemoglobin 13.4 g/dl (12.0-16.0); Lymphocyte % 38.6 %; Mean Corpuscular HGB Conc 33 g/dl (31-36); Mean Corpuscular Hemoglobin 31 pg (27-31); Mean Corpuscular Volume 92 fL (80-97); Mean Platelet Volume 6.9 fL (7.4-10.4); Nucleated Red Blood Cells % 0.1; Platelet Count 269 10^3/ul (150-450); Red Blood Count 4.39 10^6/ul (4.00-5.40); Red Cell Distribution Width 14 % (10.5-15); White Blood Count 7.9 10^3/ul (3.5-10.8)
[2018-11-25 20:52] LABS: Activated Partial Thrombo Time 34.6 seconds (26.0-36.3); INR 0.84 (0.77-1.02)
[2018-11-25 21:00] LABS: Albumin 4.3 g/dL (3.2-5.2); Albumin/Globulin Ratio 1.4 (1-3); BUN/Creatinine Ratio 16.3 (8-20); Calcium 9.8 mg/dL (8.6-10.3); EGFR Non-African American 52.1 (>60); Globulin 3.1 g/dL (2-4); Potassium 4.5 mmol/L (3.5-5.0); Total Bilirubin 0.4 mg/dL (0.2-1.0); Total Protein 7.4 g/dL (6.4-8.9)
[2018-11-25 21:04] LABS: Urine Appearance Clear; Urine Bacteria Absent (Absent); Urine Bilirubin Negative (Negative); Urine Blood 2+ (Negative); Urine Color Yellow; Urine Glucose Negative (Negative); Urine Ketones Negative (Negative); Urine Nitrite Negative (Negative); Urine Protein Negative (Negative); Urine Red Blood Cell 3+(>10/hpf) (Absent); Urine Specific Gravity 1.011 (1.010-1.030); Urine Squamous Epithelial Cell Present (Absent); Urine Urobilinogen Negative (Negative); Urine White Blood Cell Trace(0-5/hpf) (Absent)
[2018-11-26 00:04] VITALS: BP 135/75
== END 2018-11-26 | disposition home or self-care (01) ==
LOC: ED 16:30
DX: R31.29 Other microscopic hematuria (principal); R30.0 Dysuria; R10.84 Generalized abdominal pain; Z87.891 Personal history of nicotine dependence
CPT/HCPCS: 36415; 74176; 80053; 81003; 81015; 83735; 85025; 85610; 85730; 87086; 99283; A9270-GY

== ENCOUNTER → 2019-03-29 13:43 | Emergency (ER) | payer MEDICARE ==
--- NOTE | 2019-03-29 14:44 | ED ---
Abdominal Pain/Female - HPI Summary HPI Summary: Pt. is a 73 y.o female who presents to the ER with ongoing RUQ abd. pain for a few weeks. Pain is intermittent and sharp in nature. It is worse with palpation and movement. Pt. denies associated sxs of CP, SOB, vomiting, diarrhea, constipation, urinary sxs. Pt. was seen in ED earlier in the year for similar sxs and had an abd/pelvic ct at that time which was unremarkable. Pt. has an apt. with GI on 04/05 for this ongoing pain. Pt. states pain increased today so she came to ER. She has not yet had a GB u/s. Pt. notes colonoscopy in the year that showed benign polyps. Sxs are moderate in severity. - History of Current Complaint Chief Complaint: EDAbdPain Stated Complaint: PAIN ON RIGHT SIDE Time Seen by Provider: 03/29/19 14:24 Hx Obtained From: Patient Pain Intensity: 8 Allergies/Adverse Reactions: Allergies Allergy/AdvReac Type Severity Reaction Status Date / Time No Known Allergies Allergy Verified 03/29/19 13:47 PMH/Surg Hx/FS Hx/Imm Hx Previously Healthy: Yes Endocrine/Hematology History: Denies: Hx Diabetes Cardiovascular History: Reports: Other Cardiovascular Problems/Disorders - aortic intimal coronary calcification from CT scan 2017 Denies: Hx Hypertension Respiratory History: Reports: Hx Chronic Obstructive Pulmonary Disease (COPD), Other Respiratory Problems/Disorders - CT scan showed aortic intimal coronary alcification History: Reports: Hx Kidney Stones - 1989,s possible had a kidney stone Denies: Hx Renal Disease Musculoskeletal History: Reports: Hx Tendonitis - D'Quervains release done Sensory History: Reports: Hx Contacts or Glasses - glasses Denies: Hx Hearing Aid Opthamlomology History: Reports: Hx Contacts or Glasses - glasses - Cancer History Hx Chemotherapy: No Hx Radiation Therapy: No - Surgical History Surgery Procedure, Year, and Place: 2 c-sections, 5 ortho surgeries on R hand, LEFT EYE SURGERY (REMOVE SCAR TISSUE) 2014. Right hip surgery repair 2002, bilat cataract surgery with IOL 2010, tonsillectomy 1957, 1 surgery on L hand, tonsils Hx Anesthesia Reactions: No Infectious Disease History: No Infectious Disease History: Denies: Hx Clostridium Difficile, Hx Hepatitis, Hx Human Immunodeficiency Virus (HIV), Hx of Known/Suspected MRSA, Hx Shingles, Hx Tuberculosis, Hx Known/ Suspected VRE, Hx Known/Suspected VRSA, History Other Infectious Disease, Traveled Outside the [place] in Last 30 Days - Family History Known Family History: Positive: Other - positive FMH for URI, Non-Contributory Negative: Diabetes - Social History Occupation: Retired Lives: With Family Alcohol Use: Occasionally Substance Use Type: Reports: None Smoking Status (MU): Former Smoker Type: Cigarettes Amount Used/How Often: 1ppd, smoked for 53 years Length of Time of Smoking/Using Tobacco: 53 years Have You Smoked in the Last Year: Yes Review of Systems Constitutional: Negative Negative: Fever, Chills Cardiovascular: Negative Negative: Palpitations, Chest Pain Respiratory: Negative Negative: Shortness Of Breath, Cough Positive: Abdominal Pain. Negative: Vomiting, Diarrhea, Nausea Genitourinary: Negative Skin: Negative Negative: Rash Neurological: Negative All Other Systems Reviewed And Are Negative: Yes Physical Exam Triage Information Reviewed: Yes Vital Signs On Initial Exam: Initial Vitals Temp Pulse Resp BP Pulse Ox 97.7 F 80 16 199/98 97 03/29/19 13:47 03/29/19 13:47 03/29/19 13:47 03/29/19 13:47 03/29/19 13:47 Vital Signs Reviewed: Yes Appearance: Positive: Well-Appearing - Pt. sitting up in bed in NAD. Skin: Positive: Warm, Dry Head/Face: Positive: Normal Head/Face Inspection Eyes: Positive: Normal, EOMI Neck: Positive: Supple Respiratory/Lung Sounds: Positive: Clear to Auscultation, Breath Sounds Present. Negative: Rales, Rhonchi, Wheezes Cardiovascular: Positive: Normal, RRR Abdomen Description: Positive: Other: - Obese. Abd. is soft with moderate tenderness to RUQ without guarding. Negative reid sign. Mild right CVA tenderness. Neurological: Positive: Normal, CN Intact II-III Psychiatric: Positive: Affect/Mood Appropriate Diagnostics - Vital Signs Vital Signs Temp Pulse Resp BP Pulse Ox 03/29/19 13:47 97.7 F 80 16 199/98 97 - Laboratory Result Diagrams: 03/29/19 14:53 03/29/19 14:53 Lab Statement: Any lab studies that have been ordered have been reviewed, and results considered in the medical decision making process. Abdominal Pain Fem Course/Dx - Course Course Of Treatment: Pt. presenting for ongoing abd. pain. She is afebrile and well appearing. BP elevated. Pt. declines pain medication. Labs and gb u/s ordered for further evaluation. ECG done at 1517 shows a sinus rhythm of 85bpm, normal axis, incomplete RBBB, no STEMI, unchanged from previous tracing. Blood work and urine are unremarkable. GB u/s negative for acute findings per radiology. Results discussed with pt. Unclear of pain etiology. Pt. will f.u with PCP for elevated BP. Pt. comfortable with dc home to f.u with GI on the . Will return if sxs change or worsen. - Diagnoses Differential Diagnosis: Positive: Gall Bladder Disease, Hepatitis, Pancreatitis , Peptic Ulcer Disease, Pneumonia, Renal Colic, Urinary Tract Infection Provider Diagnoses: Abdominal pain Discharge - Sign-Out/Discharge Documenting (check all that apply): Patient Departure Patient Received Moderate/Deep Sedation with Procedure: No - Discharge Plan Condition: Good Disposition: HOME Patient Education Materials: Abdominal Pain (ED) Referrals: Jenn Barillas MD [Primary Care Provider] - Additional Instructions: Follow up with GI as scheduled Can try tylenol or motrin for pain as directed and warm compress Return to ER for increased pain, fever, new or worsening symptoms - Billing Disposition and Condition Condition: GOOD Disposition: Home
[2019-03-29 15:01] LABS: ABS Basophils 0.1 10^3/ul (0-0.2); ABS Eosinophils 0.2 10^3/ul (0-0.6); ABS Lymphocytes 3.2 10^3/ul (1.0-4.8); ABS Monocytes 0.6 10^3/ul (0-0.8); ABS Neutrophils 3.5 10^3/ul (1.5-7.7); Eosinophil % 3.1 %; Hematocrit 40 % (35-47); Hemoglobin 13.7 g/dL (12.0-16.0); Lymphocyte % 42.5 %; Mean Corpuscular HGB Conc 35 g/dL (31-36); Mean Corpuscular Hemoglobin 31 pg (27-31); Mean Corpuscular Volume 90 fL (80-97); Mean Platelet Volume 6.7 fL (7.4-10.4); Platelet Count 278 10^3/uL (150-450); Red Blood Count 4.44 10^6 /uL (3.70-4.87); Red Cell Distribution Width 14 % (10-15); White Blood Count 7.5 10^3/uL (3.5-10.8)
[2019-03-29 15:26] LABS: Albumin 4.3 g/dL (3.2-5.2); Albumin/Globulin Ratio 1.3 (1-3); BUN/Creatinine Ratio 15.9 (8-20); C Reactive Protein 2.69 mg/L (<8.01); Calcium 9.6 mg/dL (8.6-10.3); EGFR Non-African American 50.4 (>60); Globulin 3.3 g/dL (2-4); Potassium 4.1 mmol/L (3.5-5.0); Total Bilirubin 0.4 mg/dL (0.2-1.0); Total Protein 7.6 g/dL (6.4-8.9)
[2019-03-29 16:10] LABS: Urine Appearance Clear; Urine Bacteria Absent (Absent); Urine Bilirubin Negative (Negative); Urine Blood 2+ (Negative); Urine Color Straw; Urine Glucose Negative (Negative); Urine Ketones Negative (Negative); Urine Nitrite Negative (Negative); Urine Protein Negative (Negative); Urine Red Blood Cell 2+(6-10/hpf) (Absent); Urine Specific Gravity 1.004 (1.010-1.030); Urine Urobilinogen Negative (Negative); Urine White Blood Cell Absent (Absent)
[2019-03-29 16:42] VITALS: BP 185/100
== END | disposition home or self-care (01) ==
LOC: ED 13:43
DX: R10.11 Right upper quadrant pain (principal); R03.0 Elevated blood-pressure reading, without diagnosis of hypertension; I45.10 Unspecified right bundle-branch block; J44.9 Chronic obstructive pulmonary disease, unspecified; Z87.891 Personal history of nicotine dependence
CPT/HCPCS: 36415; 76705; 80053; 81003; 81015; 83690; 84484; 85025; 86140; 93005; 99283

== ENCOUNTER 2019-10-20 16:06 | Emergency (ER) | payer MEDICARE ==
--- OUTSIDE RECORDS SUMMARY | 2019-10-20 16:57 | XMS REPORT | Continuity of Care Document ---
:1945 External Reference #:[id number] Author Name DAVID Cohen Address [address] [place] [address] Problems Active Problems Provider Date Smoker Onset: 05/14/2019 Microscopic hematuria Onset: 12/05/2018 Essential hypertension Onset: 06/06/2018 Bilateral hearing loss Onset: 01/20/2018 Epiretinal membrane Onset: 02/06/2015 Inactive Problems Financial circumstances change Onset: 05/29/2019 Inactive: 05/29/2019 Chronic obstructive lung disease Onset: 05/14/2019 Inactive: 05/14/2019 Right upper quadrant pain Onset: 05/14/2019 Inactive: 05/14/2019 Dyskinesia of gallbladder Onset: 05/14/2019 Inactive: 05/14/2019 Benign essential hypertension Onset: 05/14/2019 Inactive: 05/14/2019 Social History Type Date Description Comments Sex Unknown Tobacco Use Start: Unknown End: Unknown Patient is a former smoker Smoking Status Reviewed: 08/29/19 Patient is a former smoker Allergies, Adverse Reactions, Alerts Description No Known Drug Allergies Medications Active Medications SIG Qnty Indications Ordering Date Provider Losartan Potassium 1 by mouth every 30tabs I10 DAVID Cohen 08/29/2019 day 50mg Tablets Omeprazole Take 1 Capsule By Kuldipcapbriseida Almanza, 04/25/2019 20mg Mouth Every Day MD Gypsy Rose HFShannon 2 puffs every 6 1units Unknown 09/26/2018 hours Inhalation; 108(90Base) mcg/Act 2 puffs every 4-6 Aerosol hours as needed Fluticasone nasal; spray 2 16units DAVID Cohen 07/21/2018 Propionate sprays into each nostril one time 50mcg/Act daily Suspension Symbicort Inhalation; 10.2units Unknown 07/21/2018 Inhale 2 Puffs By 80-4.5mcg/Act Mouth Two Times Aerosol Daily Meclizine HCL 1 every 6 hours 20tabs Unknown 06/26/2018 25mg prn Oral; use Tablets every 6 hours as needed for vertigo Incruse Ellipta Inhalation; 30units Unknown 11/14/2017 Inhale 1 puff By 62.5mcg/Inh Aerosol Mouth Every Day Albuterol Sulfate Inhalation; 150units Unknown 09/05/2017 Inhale The 0.63mg/3ML Contents Of 1 Nebulizer Vial Via Nebulizer Two Times Daily History Medications Losartan Potassium 1 daily oral 90tabs DAVID Cohen 05/11/2019 - 08/29 25mg Tablets Omeprazole 1 daily Oral 30caps Unknown 03/02/2019 - 04/25/[address] Villatoro CPT Code Status Date Vaccine Lot # [id number] Given 09/29/2018 Influenza Virus Vaccine, Quadrivalent, Split, Im Use 0.25ML 11835 Given 09/29/2018 Influenza Virus Vaccine, Quadrivalent, Split, Im Use 0.25ML 73639 Given 09/29/2018 Influenza Virus Vaccine, Quadrivalent, Split, Im Use 0.25ML 84682 Given 09/29/2018 Flu < 65 years 70565 Given 09/29/2018 Influenza Virus Vaccine, Quadrivalent, Split, Preservative Free 93214 Given 09/29/2018 Flumist 90807 Given 09/29/2018 Flu High Dose 91508 Given 09/29/2018 Influenza Virus Vaccine, Split, Preserv Free, Intradermal Use 88825 Given 03/23/2017 Prevnar 13 10618 Given 08/23/2011 Pneumovax - for >=2years - PPSV23 [id number] Refused 12/07/2017 Influenza Virus Vaccine, Quadrivalent, Split, Im Use 0.25ML 00074 Refused 05/31/2014 Influenza Virus Vaccine, Quadrivalent, Split, Im Use 0.25ML 75720 Refused 08/25/2012 Influenza Virus Vaccine, Quadrivalent, Split, Im Use 0.25ML Vital Signs Date Vital Result Comment 08/29/2019 10:20am BP Systolic 140 mmHg BP Diastolic 80 mmHg Height 58 inches 4'10" Weight 149.00 lb Heart Rate 91 /min Body Temperature 96.5 F O2 % BldC Oximetry 95 % BMI (Body Mass Index) 31.1 kg/m2 05/11/2019 11:47am BP Systolic 160 mmHg Height 60.03 inches 5'0.03" Weight 148.00 lb Heart Rate 68 /min Body Temperature 97.0 F O2 % BldC Oximetry 99 % BMI (Body Mass Index) 28.88 kg/m2 Results Test Acquired Date Facility Test Result H/L Range Note [facility]M Urine 08/29/2019 [facility] Urine, Microalbumin 10 Microalbumin/ ( )- - Creat R Urine, Creatinine, Random 100 Microalb/CR Ratio <30 Ketones-Ua 03/29/2019 N2N/CCD Import Ketones-Ua Negative Negative Leuk Est-Ua 03/29/2019 N2N/CCD Import Leuk Est-Ua Negative Negative Lipase 03/29/2019 N2N/CCD Import Lipase 53 U/L 11.0-82.0 U/L Lymph# 03/29/2019 N2N/CCD Import Lymph# 3.2 10_3/ul 1.0-4.8 10 3/ul Lymph% 03/29/2019 N2N/CCD Import Lymph% 42.5 % 20 - 45 % MCH 03/29/2019 N2N/CCD Import MCH 31 pg 27-31 pg MCHC 03/29/2019 N2N/CCD Import MCHC 35 g/dL 31-36 g/dL MCV 03/29/2019 N2N/CCD Import MCV 90 fL 80-97 fL [place]# 03/29/2019 N2N/CCD Import [place]# 0.6 10_3/ul 0-0.8 10 3/ul [place]% 03/29/2019 N2N/CCD Import [place]% 7.7 % 0 - 10 % MPV 03/29/2019 N2N/CCD Import MPV 6.7 fL Low 7.4-10.4 fL Neut# 03/29/2019 N2N/CCD Import Neut# 3.5 10_3/ul 1.5-7.7 10 3/ul Neut% 03/29/2019 N2N/CCD Import Neut% 45.8 % 45 - 70 % Nitrite-Ua 03/29/2019 N2N/CCD Import Nitrite-Ua Negative Negative NRBC# 03/29/2019 N2N/CCD Import NRBC# 0.0 10_3/ul NRBC% 03/29/2019 N2N/CCD Import NRBC% 0.0 _ PH-Ua 03/29/2019 N2N/CCD Import PH-Ua 7.0 _ 5-9 Platelets 03/29/2019 N2N/CCD Import Platelets 278 10_3/uL 150-450 10 3/uL Potassium 03/29/2019 N2N/CCD Import Potassium 4.1 mmol/L 3.5-5.0 mmol/L Protein, Total 03/29/2019 N2N/CCD Import Protein, Total 7.6 g/dL 6.4- 8.9 g/dL Protein-Ua 03/29/2019 N2N/CCD Import Protein-Ua Negative Negative RBC 03/29/2019 N2N/CCD Import RBC 4.44 3.70-4.87 10 10_6_/uL 6 /uL RBC-Ua 03/29/2019 N2N/CCD Import RBC-Ua 2+(6-10/hpf) Abnormal Absent RDW 03/29/2019 N2N/CCD Import RDW 14 % 10-15 % Sodium 03/29/2019 N2N/CCD Import Sodium 138 mmol/L 135-145 mmol/L SP Grav-Ua 03/29/2019 N2N/CCD Import SP Grav-Ua 1.004 _ Low 1.010-1.030 Troponin 03/29/2019 N2N/CCD Import Troponin 0.00 ng/mL <0.04 ng/mL Urobilinogen-U 03/29/2019 N2N/CCD Import Urobilinogen-U Negative Negative a a WBC 03/29/2019 N2N/CCD Import WBC 7.5 10_3/uL 3.5-10.8 10 3/uL WBC-Ua 03/29/2019 N2N/CCD Import WBC-Ua Absent Absent A/G Ratio 03/29/2019 N2N/CCD Import A/G Ratio 1.3 _ 1-3 Albumin 03/29/2019 N2N/CCD Import Albumin 4.3 g/dL 3.2-5.2 g/dL Alk Phos 03/29/2019 N2N/CCD Import Alk Phos 66 U/L 34-104 U/L Alt 03/29/2019 N2N/CCD Import Alt 22 U/L 7-52 U/L Anion Gap 03/29/2019 N2N/CCD Import Anion Gap 9 mmol/L 2-11 mmol/L Appear-Ua 03/29/2019 N2N/CCD Import Appear-Ua Clear Ast 03/29/2019 N2N/CCD Import Ast 23 U/L 13-39 U/L Bacteria-Ua 03/29/2019 N2N/CCD Import Bacteria-Ua Absent Absent Baso# 03/29/2019 N2N/CCD Import Baso# 0.1 10_3/ul 0-0.2 10 3/ul Baso% 03/29/2019 N2N/CCD Import Baso% 0.9 % 0 - 2 % Bilirubin 03/29/2019 N2N/CCD Import Bilirubin 0.40 mg/dL 0.2-1.0 Total Total mg/dL Bilirubin-Ua 03/29/2019 N2N/CCD Import Bilirubin-Ua Negative Negative Blood-Ua 03/29/2019 N2N/CCD Import Blood-Ua 2+ Abnormal Negative BUN 03/29/2019 N2N/CCD Import BUN 17 mg/dL 6-24 mg/dL BUN/Creat 03/29/2019 N2N/CCD Import BUN/Creat 15.9 _ 8-20 Ratio Ratio Hemoglobin 03/29/2019 N2N/CCD Import Hemoglobin 13.7 g/dL 12.0-16.0 g/dL Hematocrit 03/29/2019 N2N/CCD Import Hematocrit 40 % 35-47 % Glucose-Ua 03/29/2019 N2N/CCD Import Glucose-Ua Negative Negative Glucose 03/29/2019 N2N/CCD Import Glucose 100 mg/dL 70-100 mg/dL Globulin 03/29/2019 N2N/CCD Import Globulin 3.3 g/dL 2-4 g/dL GFR Non Afr 03/29/2019 N2N/CCD Import GFR Non Afr 50.4 _ >60 Amer Amer GFR Afr Amer 03/29/2019 N2N/CCD Import GFR Afr Amer 61.0 _ >60 Eosin% 03/29/2019 N2N/CCD Import Eosin% 3.1 % 0 - 5 % Eosin# 03/29/2019 N2N/CCD Import Eosin# 0.2 10_3/ul 0-0.6 10 3/ul CRP 03/29/2019 N2N/CCD Import CRP 2.69 mg/L <8.01 mg/L Creatinine 03/29/2019 N2N/CCD Import Creatinine 1.07 mg/dL High 0.51- 0.95 mg/dL Color-Ua 03/29/2019 N2N/CCD Import Color-Ua Straw Co2 03/29/2019 N2N/CCD Import Co2 23 mmol/L 22-32 mmol/L Chloride 03/29/2019 N2N/CCD Import Chloride 106 mmol/L 101-111 mmol/L Calcium 03/29/2019 N2N/CCD Import Calcium 9.6 mg/dL 8.6-10.3 mg/dL Protein, Total 03/22/2019 N2N/CCD Import Protein, Total 7.2 g/dL 6.4- 8.9 g/dL Potassium 03/22/2019 N2N/CCD Import Potassium 4.6 mmol/L 3.5-5.0 mmol/L Platelets 03/22/2019 N2N/CCD Import Platelets 297 10_3/uL 150-450 10 3/uL NRBC% 03/22/2019 N2N/CCD Import NRBC% 0.0 _ NRBC# 03/22/2019 N2N/CCD Import NRBC# 0.0 10_3/ul Neut% 03/22/2019 N2N/CCD Import Neut% 48.2 % 45 - 70 % Neut# 03/22/2019 N2N/CCD Import Neut# 3.2 10_3/ul 1.5-7.7 10 3/ul MPV 03/22/2019 N2N/CCD Import MPV 7.5 fL 7.4-10.4 fL [place]% 03/22/2019 N2N/CCD Import [place]% 7.7 % 0 - 10 % [place]# 03/22/2019 N2N/CCD Import [place]# 0.5 10_3/ul 0-0.8 10 3/ul MCV 03/22/2019 N2N/CCD Import MCV 91 fL 80-97 fL MCHC 03/22/2019 N2N/CCD Import MCHC 34 g/dL 31-36 g/dL MCH 03/22/2019 N2N/CCD Import MCH 31 pg 27-31 pg RBC 03/22/2019 N2N/CCD Import RBC 4.47 3.70-4.87 10 10_6_/uL 6 /uL RDW 03/22/2019 N2N/CCD Import RDW 14 % 10-15 % Sodium 03/22/2019 N2N/CCD Import Sodium 139 mmol/L 135-145 mmol/L WBC 03/22/2019 N2N/CCD Import WBC 6.6 10_3/uL 3.5-10.8 10 3/uL Bilirubin-Ua 03/22/2019 N2N/CCD Import Bilirubin-Ua Negative Negative - Negative Qual Blood-Ua 03/22/2019 N2N/CCD Import Blood-Ua 2+ High Negative - Negative Qual Glucose-Ua 03/22/2019 N2N/CCD Import Glucose-Ua Negative Negative - Negative Qual Ketones-Ua 03/22/2019 N2N/CCD Import Ketones-Ua Negative Negative - Negative Qual Leuk Est-Ua 03/22/2019 N2N/CCD Import Leuk Est-Ua Negative Negative - Negative Qual Nitrite-Ua 03/22/2019 N2N/CCD Import Nitrite-Ua Negative Negative - Negative Qual PH-Ua 03/22/2019 N2N/CCD Import PH-Ua 6.5 _ 5 - 7 Protein-Ua 03/22/2019 N2N/CCD Import Protein-Ua Negative SP Grav-Ua 03/22/2019 N2N/CCD Import SP Grav-Ua 1.010 _ 1.003 - 1.030 Urobilinogen-U 03/22/2019 N2N/CCD Import Urobilinogen-U neg Negative - a a Negative A/G Ratio 03/22/2019 N2N/CCD Import A/G Ratio 1.6 _ 1-3 Albumin 03/22/2019 N2N/CCD Import Albumin 4.4 g/dL 3.2-5.2 g/dL Alk Phos 03/22/2019 N2N/CCD Import Alk Phos 70 U/L 34-104 U/L Alt 03/22/2019 N2N/CCD Import Alt 24 U/L 7-52 U/L Amylase 03/22/2019 N2N/CCD Import Amylase 43 U/L 29-103 U/L Anion Gap 03/22/2019 N2N/CCD Import Anion Gap 9 mmol/L 2-11 mmol/L Ast 03/22/2019 N2N/CCD Import Ast 24 U/L 13-39 U/L Baso# 03/22/2019 N2N/CCD Import Baso# 0.0 10_3/ul 0-0.2 10 3/ul Baso% 03/22/2019 N2N/CCD Import Baso% 0.6 % 0 - 2 % Bilirubin 03/22/2019 N2N/CCD Import Bilirubin 0.40 mg/dL 0.2-1.0 Total Total mg/dL BUN 03/22/2019 N2N/CCD Import BUN 21 mg/dL 6-24 mg/dL BUN/Creat 03/22/2019 N2N/CCD Import BUN/Creat 18.4 _ 8-20 Ratio Ratio Calcium 03/22/2019 N2N/CCD Import Calcium 10.0 mg/dL 8.6-10.3 mg/dL Chloride 03/22/2019 N2N/CCD Import Chloride 104 mmol/L 101-111 mmol/L Co2 03/22/2019 N2N/CCD Import Co2 26 mmol/L 22-32 mmol/L Creatinine 03/22/2019 N2N/CCD Import Creatinine 1.14 mg/dL High 0.51- 0.95 mg/dL Eosin# 03/22/2019 N2N/CCD Import Eosin# 0.2 10_3/ul 0-0.6 10 3/ul Eosin% 03/22/2019 N2N/CCD Import Eosin% 3.2 % 0 - 5 % GFR Afr Amer 03/22/2019 N2N/CCD Import GFR Afr Amer 56.7 _ >60 GFR Non Afr 03/22/2019 N2N/CCD Import GFR Non Afr 46.9 _ >60 Amer Amer Globulin 03/22/2019 N2N/CCD Import Globulin 2.8 g/dL 2-4 g/dL Glucose 03/22/2019 N2N/CCD Import Glucose 114 mg/dL High 70-100 mg/dL Hematocrit 03/22/2019 N2N/CCD Import Hematocrit 41 % 35-47 % Hemoglobin 03/22/2019 N2N/CCD Import Hemoglobin 13.7 g/dL 12.0-16.0 g/dL Lipase 03/22/2019 N2N/CCD Import Lipase 49 U/L 11.0-82.0 U/L Lymph# 03/22/2019 N2N/CCD Import Lymph# 2.7 10_3/ul 1.0-4.8 10 3/ul Lymph% 03/22/2019 N2N/CCD Import Lymph% 40.3 % 20 - 45 % Procedures Description No Information Available Medical Devices Description No Information Available Encounters Type Date Location Provider Dx Diagnosis Office Visit 08/29/2019 10:15a [facility] DAVID Cohen I10 Essential ( primary) hypertension Assessments Date Code Description Provider 08/29/2019 I10 Essential (primary) hypertension DAVID Cohen Plan of Treatment 08/29/2019 - BRAIN CohenPI10 Essential (primary) hypertensionNew Medication: Losartan Potassium 50 mg - 1 by mouth every dayReferral:Patient's, Choice, Functional Status Description No Information Available Mental Status Description No Information Available Referrals Refer to Reason for Referral Status Appt Date Patient's, Choice [facility] for diet and Created exercise education to help manage HTN.
--- NOTE | 2019-10-20 17:32 | ED ---
Abdominal Pain/Female - HPI Summary HPI Summary: Patient complains of 3 episodes with bright red blood in stool starting yesterday. Denies history of same. Also complains of chronic right upper quadrant pain that lasts for seconds at a time with random onset. History of cholecystectomy a year ago. Also complains of new onset right lower quadrant pain 2 weeks described as a constant dull ache /10. Random onset. Denies fever, cough, sore throat, CP, SOB, N/3/D, change in urine, vaginal symptoms medical history as HTN, COPD, microscopic hematuria, hiatal hernia. No anti- coag. - History of Current Complaint Chief Complaint: EDGIBleed Stated Complaint: BLOOD IN STOOL/ABD PAIN PER PT Hx Obtained From: Patient Onset/Duration: Sudden Onset, Lasting Hours Timing: Intermittent Episode Lasting Severity Currently: None Pain Intensity: 0 Pain Scale Used: 0-10 Numeric Location: Discrete At: RUQ, Discrete At: RLQ Radiates: No Character: Dull Aggravating Factor(s): Nothing Alleviating Factor(s): Nothing Associated Signs and Symptoms: Positive: Negative Allergies/Adverse Reactions: Allergies Allergy/AdvReac Type Severity Reaction Status Date / Time No Known Allergies Allergy Verified 10/20/19 16:12 PMH/Surg Hx/FS Hx/Imm Hx Endocrine/Hematology History: Denies: Hx Diabetes Cardiovascular History: Reports: Hx Hypertension - ON DAILY MEDS, Other Cardiovascular Problems/Disorders Respiratory History: Reports: Hx Chronic Obstructive Pulmonary Disease (COPD), Other Respiratory Problems/Disorders - CT scan showed aortic intimal coronary CALification GI History: Reports: Hx Gastroesophageal Reflux Disease - STATES MILD, ON DAILY MEDS, Other GI Disorders - DISFUNCTIONAL GALLBLADDER History: Reports: Hx Kidney Stones - 1989,s possible had a kidney stone Denies: Hx Renal Disease Comment Only: Other Problems/Disorders - DR CARDENAS: BLOOD IN URINE PAST 6 MONTHS, FOLLOWING Musculoskeletal History: Reports: Hx Tendonitis - D'Quervains release SURGERY DONE Sensory History: Reports: Hx Cataracts - BILATERAL, Hx Contacts or Glasses - glasses Denies: Hx Hearing Aid Opthamlomology History: Reports: Hx Cataracts - BILATERAL, Hx Contacts or Glasses - glasses EENT History: Denies: Hx Deafness - Cancer History Hx Chemotherapy: No Hx Radiation Therapy: No - Surgical History Surgery Procedure, Year, and Place: 1979 & 1986 2 c-sections,. 2000s 5 ortho surgeries on R hand, [facility]. 2015 LEFT EYE SURGERY (REMOVE SCAR TISSUE) [place]. 2002 Right hip surgery repair [facility]. 2010 bilat cataract surgery with IOL [facility]. 1955 T&A. 2017 surgery on L hand, RING FONGER & TRIGGER FINGER [facility] Hx Anesthesia Reactions: No Infectious Disease History: No Infectious Disease History: Denies: Hx Clostridium Difficile, Hx Hepatitis, Hx Human Immunodeficiency Virus (HIV), Hx of Known/Suspected MRSA, Hx Shingles, Hx Tuberculosis, Hx Known/ Suspected VRE, Hx Known/Suspected VRSA, History Other Infectious Disease, Traveled Outside the [place] in Last 30 Days - Family History Known Family History: Positive: Other - positive FMH for URI, Non-Contributory Negative: Diabetes - Social History Alcohol Use: Rare Substance Use Type: Reports: None Smoking Status (MU): Former Smoker Type: Cigarettes Amount Used/How Often: 1PPD 53 YRS Length of Time of Smoking/Using Tobacco: 53 YRS Have You Smoked in the Last Year: No Review of Systems Constitutional: Negative Eyes: Negative ENT: Negative Cardiovascular: Negative Respiratory: Negative Positive: Abdominal Pain Genitourinary: Negative Musculoskeletal: Negative Skin: Negative Neurological: Negative Psychological: Normal All Other Systems Reviewed And Are Negative: Yes Physical Exam - Summary Physical Exam Summary: Mildly tender right upper quadrant and right lower quadrant. Abdominal exam otherwise unremarkable. Triage Information Reviewed: Yes Vital Signs On Initial Exam: Initial Vitals Temp Pulse Resp BP Pulse Ox 97.8 F 93 18 225/103 98 10/20/19 16:07 10/20/19 16:07 10/20/19 16:07 10/20/19 16:07 10/20/19 16:07 Vital Signs Reviewed: Yes Appearance: Positive: Well-Appearing Skin: Positive: Warm Head/Face: Positive: Normal Head/Face Inspection Eyes: Positive: Normal Neck: Positive: Supple Respiratory/Lung Sounds: Positive: Clear to Auscultation Cardiovascular: Positive: Normal Abdomen Description: Positive: Other: Musculoskeletal: Positive: Normal Neurological: Positive: Normal Psychiatric: Positive: Normal AVPU Assessment: Alert - Kiran Coma Scale Best Eye Response: 4 - Spontaneous Best Motor Response: 6 - Obeys Commands Best Verbal Response: 5 - Oriented Coma Scale Total: 15 Procedures - Sedation Patient Received Moderate/Deep Sedation with Procedure: No Diagnostics - Vital Signs Vital Signs Temp Pulse Resp BP Pulse Ox 10/20/19 16:07 97.8 F 93 18 225/103 98 - Laboratory Result Diagrams: 10/20/19 17:24 10/20/19 17:24 Lab Statement: Any lab studies that have been ordered have been reviewed, and results considered in the medical decision making process. Abdominal Pain Fem Course/Dx - Course Course Of Treatment: Patient complains of 3 episodes with bright red blood in stool starting yesterday. Denies history of same. Also complains of chronic right upper quadrant pain that lasts for seconds at a time with random onset. History of cholecystectomy a year ago. Also complains of new onset right lower quadrant pain 2 weeks described as a constant dull ache 12/24. Random onset. Denies fever, cough, sore throat, CP, SOB, N/3/D, change in urine, vaginal symptoms medical history as HTN, COPD, microscopic hematuria, hiatal hernia. No anti-coag. Elevated initial blood pressure 225/103. History of hypertension , compliant with medication. Vital signs otherwise within normal limits. Creatinine 1.13, slightly elevated from baseline. Patient given 1 L normal saline. Labs otherwise unremarkable. CT abdomen and pelvis unremarkable. Abdominal ultrasound unremarkable. Stool guaiac negative 2. Intermittent elevated blood pressure. Patient states she checks her blood pressure every morning and consistently SBP 140s. History of white coat syndrome. - Diagnoses Provider Diagnoses: Right sided abdominal pain Discharge ED - Sign-Out/Discharge Documenting (check all that apply): Patient Departure - Discharge Plan Condition: Stable Disposition: HOME Patient Education Materials: Abdominal Pain (ED) Referrals: Jessi Almanza MD [Primary Care Provider] - Harjit Moore MD [Medical Doctor] - Additional Instructions: If symptoms continue more than 1 day follow-up with GI Dr. Moore for further evaluation. Return to the ED for any new or worsening symptoms. - Billing Disposition and Condition Condition: STABLE Disposition: Home - Attestation Statements Provider Attestation: I was available for consultation for this patient. I did not evaluate the patient or participate in any medical decision making or disposition decisions unless I am specifically named in the chart as having consulted on the patient. If I have consulted on the patient, please see my own ED note on the patient encounter. Dory Tyson MD
[2019-10-20 17:38] LABS: ABS Basophils 0.1 10^3/ul (0-0.2); ABS Eosinophils 0.2 10^3/ul (0-0.6); ABS Lymphocytes 2.8 10^3/ul (1.0-4.8); ABS Monocytes 0.5 10^3/ul (0-0.8); ABS Neutrophils 3.3 10^3/ul (1.5-7.7); Eosinophil % 2.4 %; Hematocrit 40 % (35-47); Hemoglobin 13.8 g/dL (12.0-16.0); Lymphocyte % 41.3 %; Mean Corpuscular HGB Conc 35 g/dL (31-36); Mean Corpuscular Hemoglobin 32 pg (27-31); Mean Corpuscular Volume 91 fL (80-97); Nucleated Red Blood Cells % 0.1; Platelet Count 265 10^3/uL (150-450); Red Blood Count 4.35 10^6 /uL (3.70-4.87); Red Cell Distribution Width 14 % (10-15); White Blood Count 6.8 10^3/uL (3.5-10.8)
[2019-10-20 17:51] LABS: INR 0.97 (0.82-1.09)
[2019-10-20 17:54] LABS: Albumin 4.4 g/dL (3.2-5.2); Albumin/Globulin Ratio 1.5 (1-3); BUN/Creatinine Ratio 20.4 (8-20); Calcium 9.6 mg/dL (8.6-10.3); EGFR African American 57.1 (>60); EGFR Non-African American 47.2 (>60); Potassium 3.9 mmol/L (3.5-5.0); Total Bilirubin 0.4 mg/dL (0.2-1.0); Total Protein 7.4 g/dL (6.4-8.9)
[2019-10-20] MEDS ORDERED: Iodixanol* (CONTRAST) 320 MG/ML 100 ML SDV IV ONE (18:01)
[2019-10-20] MEDS ORDERED: NS 0.9% 1000 ML** 1,000 ML IV ONE (19:32)
[2019-10-20 21:31] VITALS: BP 197/99
== END 2019-10-20 21:31 | disposition home or self-care (01) ==
LOC: ED 16:06
DX: R10.9 Unspecified abdominal pain (principal); K57.90 Diverticulosis of intestine, part unspecified, without perforation or abscess without bleeding; I10 Essential (primary) hypertension; J44.9 Chronic obstructive pulmonary disease, unspecified; K21.9 Gastro-esophageal reflux disease without esophagitis; Z90.49 Acquired absence of other specified parts of digestive tract; Z87.891 Personal history of nicotine dependence; Z87.442 Personal history of urinary calculi; Z79.899 Other long term (current) drug therapy
CPT/HCPCS: 36415; 74177; 76705; 80053; 82270; 85025; 85610; 96360; 96361; 99283; Q9967

== ENCOUNTER 2019-12-08 14:17 | Emergency (ER) | payer MEDICARE ==
[2019-12-08 14:53] LABS: ABS Basophils 0.1 10^3/ul (0-0.2); ABS Eosinophils 0.2 10^3/ul (0-0.6); ABS Lymphocytes 3.2 10^3/ul (1.0-4.8); ABS Monocytes 0.6 10^3/ul (0-0.8); Eosinophil % 2.5 %; Hematocrit 39 % (35-47); Hemoglobin 13.6 g/dL (12.0-16.0); Lymphocyte % 39.5 %; Mean Corpuscular HGB Conc 35 g/dL (31-36); Mean Corpuscular Hemoglobin 32 pg (27-31); Mean Corpuscular Volume 91 fL (80-97); Mean Platelet Volume 6.9 fL (7.4-10.4); Nucleated Red Blood Cells % 0.2; Platelet Count 285 10^3/uL (150-450); Red Cell Distribution Width 14 % (10-15)
--- OUTSIDE RECORDS SUMMARY | 2019-12-08 15:17 | XMS REPORT | Continuity of Care Document ---
:1945 External Reference #:[id number] Author Problems Active Problems Provider Date Smoker Onset: 05/14/2019 Microscopic hematuria Onset: 12/05/2018 Essential hypertension Onset: 06/06/2018 Bilateral hearing loss Onset: 01/20/2018 Epiretinal membrane Onset: 02/06/2015 Inactive Problems Financial circumstances change Onset: 05/29/2019 Inactive: 05/29/2019 Social History Type Date Description Comments Sex [...] 50mg Tablets Omeprazole Take 1 Capsule By 30caps [facility], 04/25/2019 20mg Mouth Every Day MD Gypsy Rose HFA 2 puffs every 6 1units Unknown 09/26/2018 hours Inhalation; 108(90Base) mcg/Act 2 puffs every 4-6 Aerosol hours as needed Fluticasone Use 2 Sprays In 16units [facility], 07/21/2018 Propionate Each Nostril One MD Time A Day 50mcg/Act Suspension Symbicort Inhalation; 10.2units Unknown 07/21/2018 Inhale 2 Puffs By 80-4.5mcg/Act Mouth Two Times Aerosol Daily Meclizine HCL 1 every 6 hours 20tabs Unknown 06/26/2018 25mg prn Oral; use Tablets every 6 hours as needed for vertigo Incruse Ellipta inhalation; 30units [facility], 11/14/2017 inhale 1 puff by MD 62.5mcg/Inh Aerosol mouth every day Albuterol Sulfate Inhalation; 150units Unknown 09/05/2017 Inhale The 0.63mg/3ML Contents Of 1 Nebulizer Vial Via Nebulizer Two Times Daily Immunizations CPT Code Status Date Vaccine Lot # [id number] Given 08/29/2019 Flu High Dose [id number] 20509 Given 09/29/2018 Influenza Virus Vaccine, Quadrivalent, Split, Im Use 0.25ML 20560 Given 09/29/2018 Influenza Virus Vaccine, Quadrivalent, Split, Im Use 0.25ML 18615 Given 09/29/2018 Influenza Virus Vaccine, Quadrivalent, Split, Im Use 0.25ML 29733 Given 09/29/2018 Flu < 65 years 80434 Given 09/29/2018 Influenza Virus Vaccine, Quadrivalent, Split, Preservative Free 26828 Given 09/29/2018 Flumist 67030 Given 09/29/2018 Flu High Dose 83050 Given 09/29/2018 Influenza Virus Vaccine, Split, Preserv Free, Intradermal Use 15271 Given 03/23/2017 Prevnar 13 64113 Given 08/23/2011 Pneumovax - for >=2years - [id number] 08746 Refused 12/07/2017 Influenza Virus Vaccine, Quadrivalent, Split, Im Use 0.25ML 33037 Refused 05/31/2014 Influenza Virus Vaccine, Quadrivalent, Split, Im Use 0.25ML 09002 Refused 08/25/2012 Influenza Virus Vaccine, Quadrivalent, Split, [...] Date Facility Test Result H/L Range Note Creatinine 11/17/2019 [facility] Creatinine 0.96 mg/dL High 0.51-0.[address] , Serum [place] [id number] [phone] Urine Collection Time 24 hr Urine Total Volume 1150 mL Urine Creatinine Concentration 88.62 mg/dL Creatinine Clearance 74 mL/min Low 88-128 Total Protein 24HR 11/17/2019 [facility] Urine Collection Time 24 hr Urine [address] [place] [address] [phone] Urine Total Volume 1150 mL Urine TP Concentration 7 mg/dL Urine Total Protein/24HR 80 mg/24Hr Normal 0-165 Stool Occult 10/20/2019 [facility] Stool Occult Blood, SEE RESULT 1 Blood, Screen [address] [place] [address] [phone] Stool Occult 10/20/2019 [facility] Stool Occult Blood, SEE RESULT 2 Blood, Screen [address] [place] [address] [phone] CFM Urine 08/29/2019 [facility] Urine, Microalbumin 10 Microalbumin/C ( )- - reat R Urine, Creatinine, Random 100 Microalb/CR Ratio <30 1 SEE RESULT BELOW Name: DANIA CURIEL : [address]: Dory Tyson MD Acct: [id number] Unit: [id number] AGE: 74 Location: ED Re10/20/19 SEX: F Status: REG ER SPEC: [id number] ROSY: 10/20/19 [facility] DR: Florentin SINGER REQ: [id number] RECD: 10/20/19 STATUS: COMP CRISTINA DR: Dory Almanza MD _ SOURCE: STOOL SPDESC: ORDERED: Occult Bl, Scn Procedure Result Reported Site Stool Occult Blood (1) Final 10/20/19- 2005 ML Stool Occult Blood Negative Collection Date () 10/20/19 * ML - Main Lab . END OF REPORT DEPARTMENT OF PATHOLOGY, [address] [place] [address] Filemon Grigsby M.D. Director [facility] # [id number] 2 SEE RESULT BELOW Name: DANIA CURIEL : [address]: Dory Tyson MD Acct: [id number] Unit: [id number] AGE: 74 Location: ED Re10/20/19 SEX: F Status: REG ER SPEC: [id number] ROSY: 10/20/19-[address]: Florentin SINGER REQ: [id number] RECD: 10/20/19 STATUS: CHELSI EVANS DR: Dory Almanza MD _ SOURCE: STOOL SPDESC: ORDERED: Occult Bl, Scn Procedure Result Reported Site Stool Occult Blood (1) Final 10/20/19- 1842 ML Stool Occult Blood Negative Collection Date (1) 10/20/19 * ML - Main Lab . END OF REPORT DEPARTMENT OF PATHOLOGY, [address] [place] [address] Filemon Grigsby M.D. Director [facility] # [id number] Procedures Description No Information Available Medical Devices Description No Information Available Encounters Type Date Location Provider Dx Diagnosis Office Visit 08/29/2019 10:15a [facility] Main DAVID Cohen I10 Essential ( primary) hypertension Z23 Encounter for immunization Assessments Date Code Description Provider 08/29/2019 I10 Essential (primary) hypertension DAVID Cohen 08/29/2019 Z23 Encounter for immunization DAVID Cohen Plan of Treatment 08/29/2019 - BRAIN CohenPI10 Essential (primary) hypertensionNew Medication: Losartan Potassium 50 mg - 1 by mouth every dayReferral:Patient's, Choice,Z23 Encounter for immunization Functional Status Description No Information Available Mental Status Description No Information Available Referrals Refer to Reason for Referral Status Appt Date Patient's, Chan [facility] for diet and Sent exercise education to help manage HTN.
--- OUTSIDE RECORDS SUMMARY | 2019-12-08 15:17 | XMS REPORT | Continuity of Care Document ---
:1945 External Reference #:[id number] Author Name Jessi Almanza MD Address [address] [place] [address] Problems Active Problems Provider Date Smoker Onset: [...] Tablets Omeprazole Take 1 Capsule By 30caps Jessi Almanza, 04/25/2019 20mg Mouth Every Day MD Gypsy Rsoe HFA 2 puffs every 6 1units Unknown 09/26/2018 hours Inhalation; 108(90Base) mcg/Act 2 puffs every 4-6 Aerosol hours as needed Fluticasone Use 2 Sprays In 16units Jessi Almanza, 07/21/2018 Propionate Each Nostril One MD Time A Day 50mcg/Act Suspension Symbicort Inhalation; 10.2units Unknown 07/21/2018 Inhale 2 Puffs By 80-4.5mcg/Act Mouth Two Times Aerosol Daily Meclizine HCL 1 every 6 hours 20tabs Unknown 06/26/2018 25mg prn Oral; use Tablets every 6 hours as needed for vertigo Incruse Ellipta inhalation; 30units Jessi Almanza, 11/14/2017 inhale 1 puff by MD 62.5mcg/Inh Aerosol mouth every day Albuterol Sulfate Inhalation; 150units Unknown 09/05/2017 Inhale The 0.63mg/3ML Contents Of 1 Nebulizer Vial Via Nebulizer Two Times Daily Immunizations CPT Code Status Date Vaccine Lot # [id number] Given 08/29/2019 Flu High Dose [id number] 38429 Given 09/29/2018 Influenza Virus Vaccine, Quadrivalent, Split, Im Use 0.25ML 60655 Given 09/29/2018 Influenza Virus Vaccine, Quadrivalent, Split, Im Use 0.25ML 63233 Given 09/29/2018 Influenza Virus Vaccine, Quadrivalent, Split, Im Use 0.25ML 52618 Given 09/29/2018 Flu < 65 years 14173 Given 09/29/2018 Influenza Virus Vaccine, Quadrivalent, Split, Preservative Free 57236 Given 09/29/2018 Flumist 24620 Given 09/29/2018 Flu High Dose 57945 Given 09/29/2018 Influenza Virus Vaccine, Split, Preserv Free, Intradermal Use 02927 Given 03/23/2017 Prevnar 13 42350 Given 08/23/2011 Pneumovax - for >=2years - [id number] 25537 Refused 12/07/2017 Influenza Virus Vaccine, Quadrivalent, Split, Im Use 0.25ML 65761 Refused 05/31/2014 Influenza Virus Vaccine, Quadrivalent, Split, Im Use 0.25ML 12524 Refused 08/25/2012 Influenza Virus Vaccine, Quadrivalent, Split, [...] Test Result H/L Range Note Creatinine 11/17/2019 [facility] Creatinine 0.96 mg/dL High 0.51-0.[address] , [place] [address] [phone] Urine Collection Time 24 hr Urine Total Volume 1150 mL Urine Creatinine Concentration 88.62 mg/dL Creatinine Clearance 74 mL/min Low 88-128 Total Protein 24HR 11/17/2019 [facility] Urine Collection Time 24 hr Urine [address] [place] [address] [phone] Urine Total Volume 1150 mL Urine TP Concentration 7 mg/dL Urine Total Protein/24HR 80 mg/24Hr Normal 0-165 Basic Metabolic 11/17/2019 [facility] Sodium 138 mmol/L Normal 135-[address] [place] [address] [phone] Potassium 4.1 mmol/L Normal 3.5-5.0 Chloride 103 mmol/L Normal 101-111 Co2 Carbon Dioxide 23 mmol/L Normal 22-32 Anion Gap 12 mmol/L High 2-11 Glucose 93 mg/dL Normal 70-100 Blood Urea Nitrogen 19 mg/dL Normal 6-24 Creatinine 1.07 mg/dL High 0.51-0.95 BUN/Creatinine Ratio 17.8 Normal 8-20 Calcium 9.3 mg/dL Normal 8.6-10.3 Egfr Non- 50.3 >60 Egfr 60.8 >60 1 Stool Occult 10/20/2019 [facility] Stool Occult Blood, SEE RESULT 2 Blood, Screen [address] [place] [address] [phone] Stool Occult 10/20/2019 [facility] Stool Occult Blood, SEE RESULT 3 Blood, Screen [address] [place] [address] [phone] CFM Urine 08/29/2019 [facility] Urine, Microalbumin 10 Microalbumin/C ( )- - reat R Urine, Creatinine, Random 100 Microalb/CR Ratio <30 1 Because ethnic data is not always readily available, this report includes an eGFR for both -Americans and non- Americans. The National Kidney Disease Education Program (NKDEP) does not endorse the use of the MDRD equation for patients that are not between the ages of 18 and 70, are , have extremes of body size, muscle mass, or nutritional status, or are non- or non-. According to the National Kidney Foundation, irrespective of diagnosis, the stage of the disease is based on the level of kidney function: Stage Description GFR(mL/min/1.73 m(2)) 1 Kidney damage with normal or decreased GFR 90 2 Kidney damage with mild decrease in GFR 60-89 3 Moderate decrease in GFR 30-59 4 Severe decrease in GFR 15-29 5 Kidney failure <15 (or dialysis) 2 SEE RESULT BELOW Name: DANIA CURIEL : [address]: Dory Tyson MD Acct: [id number] Unit: [id number] AGE: 74 Location: ED Re10/20/19 SEX: F Status: REG ER SPEC: [id number] ROSY: 10/20/19 [facility] [address]: Florentin SINGER REQ: [id number] RECD: 10/20/19 STATUS: CHELSI EVANS DR: Dory Almanza MD _ SOURCE: STOOL SPDESC: ORDERED: Occult Bl, Scn Procedure Result Reported Site Stool Occult Blood (1) Final 10/20/19- 2006 ML Stool Occult Blood Negative Collection Date (1) 10/20/19 * ML - Main Lab . END OF REPORT DEPARTMENT OF PATHOLOGY, [address] [place] [address] Filemon Grigsby M.D. Director [facility] # [id number] 3 SEE RESULT BELOW Name: DANIA CURIEL : [address]: Dory Tyson MD Acct: [id number] Unit: [id number] AGE: 74 Location: ED Re10/20/19 SEX: F Status: REG ER SPEC: [id number] ROSY: 10/20/19 [facility] [address]: Florentin SINGER REQ: [id number] RECD: 10/20/19 STATUS: CHELSI EVANS DR: Dory Almanza MD _ SOURCE: STOOL SPDESC: ORDERED: Occult Bl, Scn Procedure Result Reported Site Stool Occult Blood (1) Final 10/20/19- 1843 ML Stool Occult Blood Negative Collection Date (1) 10/20/19 * ML - Main Lab . END OF REPORT DEPARTMENT OF PATHOLOGY, [address] [place] [address] Filemon Grigsby M.D. Director [facility] # [id number] Procedures Description No Information Available Medical Devices Description No Information Available Encounters Type Date Location Provider Dx Diagnosis Office Visit 08/29/2019 10:15a [facility] Main DAVID Cohen I10 Essential ( primary) hypertension Z23 Encounter for immunization Assessments Date Code Description Provider 08/29/2019 I10 Essential (primary) hypertension DAVID Cohen 08/29/2019 Z23 Encounter for immunization DAVID Cohen Plan of Treatment 08/29/2019 - BRAIN CohenPI10 Essential (primary) hypertensionNew Medication: Losartan Potassium 50 mg - 1 by mouth every dayReferral:Patrick David Encounter for immunization Functional Status Description No Information Available Mental Status Description No Information Available Referrals Refer to Reason for Referral Status Appt Date [facility] for diet and exercise Sent education to help manage HTN.
--- OUTSIDE RECORDS SUMMARY | 2019-12-08 15:17 | XMS REPORT | Continuity of Care Document ---
:1945 External Reference #:[id number] Author Name Jessi Almanza MD Address [address] [place] [address] Problems Active Problems Provider Date Smoker Onset: [...] Jessi Almanza, 04/25/2019 20mg Mouth Every Day Capsules DR Rose HFA 2 puffs every 6 1units Unknown 09/26/2018 hours Inhalation; 108(90Base) mcg/Act 2 puffs every 4-6 Aerosol hours as needed Fluticasone [place] 2 Sprays 16units Jessi Almanza, 07/21/2018 Propionate Into Each Nostril MD Every Day 50mcg/Act Suspension Symbicort Inhalation; 10.2units Unknown [...] DAVID Cohen 05/11/2019 - 08/29 25mg Tablets Immunizations CPT Code Status Date Vaccine Lot # [id number] Given 08/29/2019 Flu High Dose [id number] 13344 Given 09/29/2018 Influenza Virus Vaccine, Quadrivalent, Split, Im Use 0.25ML 88109 Given 09/29/2018 Influenza Virus Vaccine, Quadrivalent, Split, Im Use 0.25ML 56061 Given 09/29/2018 Influenza Virus Vaccine, Quadrivalent, Split, Im Use 0.25ML 90496 Given 09/29/2018 Flu < 65 years 43331 Given 09/29/2018 Influenza Virus Vaccine, Quadrivalent, Split, Preservative Free 31917 Given 09/29/2018 Flumist 89963 Given 09/29/2018 Flu High Dose 49119 Given 09/29/2018 Influenza Virus Vaccine, Split, Preserv Free, Intradermal Use 84479 Given 03/23/2017 Prevnar 13 00121 Given 08/23/2011 Pneumovax - for >=2years - [id number] 12675 Refused 12/07/2017 Influenza Virus Vaccine, Quadrivalent, Split, Im Use 0.25ML 19767 Refused 05/31/2014 Influenza Virus Vaccine, Quadrivalent, Split, Im Use 0.25ML 76867 Refused 08/25/2012 Influenza Virus Vaccine, Quadrivalent, Split, [...] Date Facility Test Result H/L Range Note Stool Occult 10/20/2019 [facility] Stool Occult SEE RESULT 1 Blood, [address] Blood, [place] [address] [phone] Stool Occult 10/20/2019 [facility] Stool Occult SEE RESULT 2 Blood, [address] Blood, Screen BELOW Screen [place], [place] [address] [phone] CFM Urine 08/29/2019 [facility] Urine, 10 Microalbumin ( )- - Microalbumin /Creat R Urine, Creatinine, Random 100 Microalb/CR Ratio <30 1 SEE RESULT BELOW Name: DANIA CURIEL : [address]: Dory Tyson MD Acct: [id number] Unit: [id number] AGE: 74 Location: ED Re10/20/19 SEX: F Status: REG ER SPEC: [id number] ROSY: 10/20/19 [facility] DR: Florentin SINGER REQ: [id number] RECD: 10/20/19 STATUS: CHELSI EVANS DR: Dory Almanza MD _ SOURCE: STOOL SPDESC: ORDERED: Occult Bl, Scn Procedure Result Reported Site Stool Occult Blood (1) Final 10/20/19- 2005 ML Stool Occult Blood Negative Collection Date (1) 10/20/19 * ML - Main Lab . END OF REPORT DEPARTMENT OF PATHOLOGY, [address] [place] [address] Filemon Grigsby M.D. Director [facility] # [id number] 2 SEE RESULT BELOW Name: DANIA CURIEL : [address]: Dory Tyson MD Acct: [id number] Unit: [id number] AGE: 74 Location: ED Re10/20/19 SEX: F Status: REG ER SPEC: [id number] ROSY: 10/20/19-[address]: Florentin SINGER REQ: [id number] RECD: 10/20/19 STATUS: CHELSI EVANS DR: Dory Almanza MD _ SOURCE: STOOL SPDESC: ORDERED: Occult Bl, Scn Procedure Result Reported Site Stool Occult Blood (1) Final 10/20/19- 1843 ML Stool Occult Blood Negative Collection Date (1) 10/20/19 * ML - Main Lab . END OF REPORT DEPARTMENT OF PATHOLOGY, [address] [place] [address] Filemon Grigsby M.D. Director [facility] # [id number] Procedures Description No Information Available Medical Devices Description No Information Available Encounters Type Date Location Provider Dx Diagnosis Office Visit 08/29/2019 10:15a [facility] Main DAVID Cohen I10 Essential ( primary) hypertension Z23 Encounter for immunization Assessments Date Code Description Provider 08/29/2019 I10 Essential (primary) hypertension DAVID Cohen 08/29/2019 Z23 Encounter for immunization DAVID Cohen Plan of Treatment 08/29/2019 - KETAN Cohen10 Essential (primary) hypertensionNew Medication: Losartan Potassium 50 mg - 1 by mouth every dayReferral:Patient's, Chan,Z23 Encounter for immunization Functional Status Description No Information Available Mental Status Description No Information Available Referrals Refer to Reason for Referral Status Appt Date Patient's, Chan [facility] for diet and Sent 00 exercise education to help manage HTN.
--- OUTSIDE RECORDS SUMMARY | 2019-12-08 15:17 | XMS REPORT | Continuity of Care Document ---
:1945 External Reference #:[id number] Author Name Jessi Almanza MD Address [address] [place] [address] Problems Active Problems Provider Date Smoker Onset: [...] every 4-6 Aerosol hours as needed Fluticasone [place] 2 Sprays 16units Jessi Almanza, 07/21/2018 Propionate [...] CPT Code Status Date Vaccine Lot # [id number] Given 08/29/2019 Flu High Dose [id number] 22154 Given 09/29/2018 Influenza Virus Vaccine, Quadrivalent, Split, Im Use 0.25ML 40928 Given 09/29/2018 Influenza Virus Vaccine, Quadrivalent, Split, Im Use 0.25ML 35150 Given 09/29/2018 Influenza Virus Vaccine, Quadrivalent, Split, Im Use 0.25ML 03818 Given 09/29/2018 Flu < 65 years 79395 Given 09/29/2018 Influenza Virus Vaccine, Quadrivalent, Split, Preservative Free 44505 Given 09/29/2018 Flumist 24782 Given 09/29/2018 Flu High Dose 52364 Given 09/29/2018 Influenza Virus Vaccine, Split, Preserv Free, Intradermal Use 26777 Given 03/23/2017 Prevnar 13 69850 Given 08/23/2011 Pneumovax - for >=2years - [id number] 47259 Refused 12/07/2017 Influenza Virus Vaccine, Quadrivalent, Split, Im Use 0.25ML 37702 Refused 05/31/2014 Influenza Virus Vaccine, Quadrivalent, Split, Im Use 0.25ML 63673 Refused 08/25/2012 Influenza Virus Vaccine, Quadrivalent, Split, [...] Result H/L Range Note Stool Occult 10/20/2019 [facility] Stool Occult SEE RESULT 1 Blood, [address] Blood, [place] [address] [phone] Stool Occult 10/20/2019 [facility] Stool Occult SEE RESULT 2 Blood, [address] Blood, Screen BELOW Screen [place], [place] [address] [phone] CFM Urine 08/29/2019 [facility] Urine, 10 Microalbumin ( )- - Microalbumin /Creat R Urine, Creatinine, Random 100 Microalb/CR Ratio <30 1 SEE RESULT BELOW Name: DANIA CURIEL : [address]: Dory Tyson MD Acct: [id number] Unit: [id number] AGE: 74 Location: ED Re10/20/19 SEX: F Status: REG ER SPEC: [id number] ROSY: 10/20/19 [facility] [address]: Florentin SINGER REQ: [id number] RECD: 10/20/19 STATUS: CHELSI EVANS DR: Dory Almanza MD _ SOURCE: STOOL SPDESC: ORDERED: Occult Bl, Scn Procedure Result Reported Site Stool Occult Blood (1) Final 10/20/19- 2005 ML Stool Occult Blood Negative Collection Date (1) 10/20/19 * ML - Main Lab . END OF REPORT DEPARTMENT OF PATHOLOGY, [address] [place] [address] Filemon Grigsby M.D. Director [facility] # [id number] 2 SEE RESULT BELOW Name: DANIA CURIEL : [address]: Dory Tyson MD Acct: [id number] Unit: [id number] AGE: 74 Location: ED Re10/20/19 SEX: F Status: REG ER SPEC: [id number] ROSY: 10/20/19-[address]: Florentin SINGER REQ: [id number] RECD: 10/20/19 STATUS: CHELSI EVANS DR: Dory Almanza MD _ SOURCE: STOOL SPDESC: ORDERED: Occult Bl, Scn Procedure Result Reported Site Stool Occult Blood (1) Final 10/20/19- 1843 ML Stool Occult Blood Negative Collection Date (1) 10/20/19 * ML - Main Lab . END OF REPORT DEPARTMENT OF PATHOLOGY, [address] [place] [address] Filemon Grigsby M.D. Director [facility] # [id number] Procedures Description No Information Available Medical Devices Description No Information Available Encounters Type Date Location Provider Dx Diagnosis Office Visit 08/29/2019 10:15a [facility] Main DAVID Cohen I10 Essential ( primary) [...] for Referral Status Appt Date Patient's, Chan [facility] for diet and Sent 00 exercise education to help manage HTN.
--- OUTSIDE RECORDS SUMMARY | 2019-12-08 15:17 | XMS REPORT | Continuity of Care Document ---
:1945 External Reference #:[id number] Author Name Chioma Canada PA-C Address [address] [address] Care Team Providers Name Role Phone Cami PRADO,Jessi Barber Care Team Information Guidance Consultant [phone] Problems Active Problems Provider Date Acute otitis externa Elvin Corbett MD Onset: 01/19/2018 Social History Type Date Description Comments Sex Unknown Tobacco Use Start: Unknown End: Unknown Former Cigarette Smoker 1 Pack Daily Tobacco Use Start: Unknown Never Smoked Cigars Tobacco Use Start: Unknown Never Smoked A Pipe Smokeless Tobacco Never Used Smokeless Tobacco ETOH Use Never consumed alcohol Allergies, Adverse Reactions, Alerts Description No Known Drug Allergies Medications Active Medications SIG Qnty Indications Ordering Provider Date Multivitamins Unknown Low-Dose Aspirin Unknown 81mg Tablets Albuterol Sulfate Jenn Barillas M.D. 0.63mg/3ML Nebulizer Symbicort Inhale 2 Puffs Unknown 80-4.5mcg/Act By Mouth Two Aerosol Times Daily Fluticasone Propionate [place] 2 Sprays Unknown Into Each 50mcg/Act Suspension Nostril One Time Daily Spiriva Handihaler Jenn Barillas M.D. 18mcg Capsules Incruse Ellipta Inhale 1 puff By Unknown 62.5mcg/Inh Mouth Every Day Aerosol Omeprazole Swanstrom P.A., 20mg Capsules DR Mcintyre Losartan Potassium Take 1 Tablet By Unknown 50mg Mouth Every Day Tablets Immunizations Description No Information Available Vital Signs Date Vital Result Comment 11/27/2019 10:51am Weight 135.00 lb Weight 61.236 kg Height 60 inches 5'0" Height in cm's 152.4 cm BMI (Body Mass Index) 26.4 kg/m2 12/12/2018 1:41pm Weight 145.00 lb Weight 65.772 kg Height 60 inches 5'0" Height in cm's 152.4 cm BMI (Body Mass Index) 28.3 kg/m2 Results Description No Information Available Procedures Date Code Description Status 11/27/2019 71195 Removal Wax Impaction Completed Medical Devices Description No Information Available Encounters Description No Information Available Assessments Date Code Description Provider 11/27/2019 H61.23 Impacted cerumen, bilateral ENMANUEL Khan-C Plan of Treatment 11/27/2019 - ENMANUEL Khan-CH61.23 Impacted cerumen, bilateralFollow up:1 year joana MARIN Functional Status Description No Information Available Mental Status Description No Information Available Referrals Description No Information Available
--- NOTE | 2019-12-08 15:24 | ED ---
HPI Chest Pain - HPI Summary HPI Summary: Patient is a 74 y/o F presenting to [facility] with complaints of left chest pain. She reports this pain radiates to her left axilla, shoulder, upper back, and neck. Pain has been present for the past few days and is characterized as a pressure. Episodes of pain are intermittent but frequent. Pain is worse today and feels "deep". She notes pain onset when she was moving her birdcage; patient states that she has done this numerous times previously. Coughing, laughter, and palpation aggravate the pain. No similar previous episodes noted, patient denies Hx of cardiac issues. Patient is on Losartan for HTN. Hx of COPD noted, patient smoked for 53 years but has not done so for the past three. N/V and pain/swelling in legs are denied. No Hx of PE or DVT noted. NKDA reported. Patient only took 81 mg ASA today. Home medications and allergies are reviewed. - History of Current Complaint Chief Complaint: EDChestWallPain Time Seen by Provider: 12/08/19 14:31 Hx Obtained From: Patient Onset/Duration: Started Days Ago Timing: Intermittent Pain Intensity: 8 Pain Scale Used: 0-10 Numeric Chest Pain Location: Left Anterior Chest Pain Radiates: Yes Chest Pain Radiates To:: Back, Shoulder, Arm, Neck Character: Pressure/Squeezing Aggravating Factor(s): Other: - palpation, cough, laughter Associated Signs and Symptoms: Positive: Chest Pain. Negative: Swelling, Nausea , Calf Pain/Swelling, Vomiting, Edema - Additional Pertinent History Primary Care Physician: CHARITY - Allergy/Home Medications Allergies/Adverse Reactions: Allergies Allergy/AdvReac Type Severity Reaction Status Date / Time No Known Allergies Allergy Verified 12/08/19 14:28 Home Medications: Home Medications Aspirin [Aspir 81] 1 tab PO QAM 07/10/14 [History Confirmed 10/20/19] Multivitamin [Multivitamins] 1 tab PO QAM 07/10/14 [History Confirmed 10/20/19] Fluticasone NASAL SPRAY 50MCG* [Flonase NASAL SPRAY 50MCG*] 2 spray BOTH NARES QAM 11/10/16 [History Confirmed 10/20/19] Albuterol Sulfate 1 neb.cristhian INH BID 05/12/17 [History Confirmed 10/20/19] Budesonide/Formote 80/4.5(NF) [Symbicort 80/4.5 (NF)] 2 puff INH BID 05/12/17 [ History Confirmed 10/20/19] Omeprazole 20 mg PO QAM 11/25/18 [History Confirmed 10/20/19] Albuterol HFA INHALER* [Ventolin HFA Inhaler*] 2 puff INH Q4H PRN 12/25/18 [ History Confirmed 10/20/19] Umeclidinium [place] [Incruse Ellipta] 62.5 mcg IN QAM 12/25/18 [History Confirmed 10/20/19] Losartan Potassium [Cozaar] 50 mg PO QAM 05/28/19 [History Confirmed 10/20/19] PMH/Surg Hx/FS Hx/Imm Hx Endocrine/Hematology History: Denies: Hx Diabetes Cardiovascular History: Reports: Hx Hypertension - ON DAILY MEDS, Other Cardiovascular Problems/Disorders Respiratory History: Reports: Hx Chronic Obstructive Pulmonary Disease (COPD), Other Respiratory Problems/Disorders - CT scan showed aortic intimal coronary CALification GI History: Reports: Hx Gastroesophageal Reflux Disease - STATES MILD, ON DAILY MEDS, Other GI Disorders - DISFUNCTIONAL GALLBLADDER History: Reports: Hx Kidney Stones - 1989,s possible had a kidney stone Denies: Hx Renal Disease Comment Only: Other Problems/Disorders - DR CARDENAS: BLOOD IN URINE PAST 6 MONTHS, FOLLOWING Musculoskeletal History: Reports: Hx Tendonitis - D'Quervains release SURGERY DONE Sensory History: Reports: Hx Cataracts - BILATERAL, Hx Contacts or Glasses - glasses Denies: Hx Deafness, Hx Hearing Aid Opthamlomology History: Reports: Hx Cataracts - BILATERAL, Hx Contacts or Glasses - glasses - Cancer History Hx Chemotherapy: No Hx Radiation Therapy: No - Surgical History Surgery Procedure, Year, and Place: 1979 & 1985 2 c-sections,. 1999s 5 ortho surgeries on R hand, [facility] [place]. 2014 LEFT EYE SURGERY (REMOVE SCAR TISSUE) [place]. 2002 Right hip surgery repair [facility] [place]. 2010 bilat cataract surgery with IOL [facility] [place]. 1955 T&A. 2017 surgery on L hand, [employer] [facility] [place] Hx Anesthesia Reactions: No Infectious Disease History: No Infectious Disease History: Denies: Hx Clostridium Difficile, Hx Hepatitis, Hx Human Immunodeficiency Virus (HIV), Hx of Known/Suspected MRSA, Hx Shingles, Hx Tuberculosis, Hx Known/ Suspected VRE, Hx Known/Suspected VRSA, History Other Infectious Disease, Traveled Outside the [place] in Last 30 Days - Family History Known Family History: Positive: Other - positive FMH for URI Negative: Diabetes - Social History Alcohol Use: Rare Substance Use Type: Reports: None Smoking Status (MU): Former Smoker Type: Cigarettes Amount Used/How Often: 1PPD 53 YRS Length of Time of Smoking/Using Tobacco: 53 YRS Have You Smoked in the Last Year: No Review of Systems Positive: Chest Pain Negative: Vomiting, Nausea Negative: Myalgia - BLE , Edema - BLE All Other Systems Reviewed And Are Negative: Yes Physical Exam - Summary Physical Exam Summary: Constitutional: Well-developed, Well-nourished, Alert. (-) Distressed Skin: Warm, Dry HENT: Normocephalic; Atraumatic Eyes: Conjunctiva normal Neck: Musculoskeletal ROM normal neck. (-) JVD, (-) Stridor, (-) Tracheal deviation Cardio: Rhythm regular, rate normal, Heart sounds normal; Intact distal pulses; The pedal pulses are 2+ and symmetric. Radial pulses are 2+ and symmetric. (-) Murmur Pulmonary/Chest wall: Tender over the left upper trapezius muscle, left sternal border and left axilla; Effort normal. (-) Respiratory distress, (-) Wheezes, (- ) Rales Abd: Soft, (-) tenderness, (-) Distension, (-) Guarding, (-) Rebound Musculoskeletal: (-) Edema Lymph: (-) Cervical adenopathy Neuro: Alert, Oriented x3 Psych: Mood and affect Normal Triage Information Reviewed: Yes Vital Signs On Initial Exam: Initial Vitals Temp Pulse Resp BP Pulse Ox 98.3 F 94 18 167/75 100 12/08/19 14:20 12/08/19 14:20 12/08/19 14:20 12/08/19 14:20 12/08/19 14:20 Vital Signs Reviewed: Yes Procedures - Sedation Patient Received Moderate/Deep Sedation with Procedure: No Diagnostics - Vital Signs Vital Signs Temp Pulse Resp BP Pulse Ox 12/08/19 14:46 92 16 175/80 97 12/08/19 14:45 21 12/08/19 14:20 98.3 F 94 18 167/75 100 - Laboratory Lab Results: Lab Results 12/08/19 Range/Units 14:40 WBC 8.0 (3.5-10.8) 10^3/uL RBC 4.30 (3.70-4.87) 10^6 /uL Hgb 13.6 (12.0-16.0) g/dL Hct 39 (35-47) % MCV 91 (80-97) fL MCH 32 H (27-31) pg MCHC 35 (31-36) g/dL RDW 14 (10-15) % Plt Count 285 (150-450) 10^3/uL MPV 6.9 L (7.4-10.4) fL Neut % (Auto) 50.0 % Lymph % (Auto) 39.5 % [place] % (Auto) 7.3 % Eos % (Auto) 2.5 % Baso % (Auto) 0.7 % Absolute Neuts (auto) 4.0 (1.5-7.7) 10^3/ul Absolute Lymphs (auto) 3.2 (1.0-4.8) 10^3/ul Absolute Monos (auto) 0.6 (0-0.8) 10^3/ul Absolute Eos (auto) 0.2 (0-0.6) 10^3/ul Absolute Basos (auto) 0.1 (0-0.2) 10^3/ul Absolute Nucleated RBC 0.0 10^3/ul Nucleated RBC % 0.2 Result Diagrams: 12/08/19 14:40 12/08/19 14:40 Lab Statement: Any lab studies that have been ordered have been reviewed, and results considered in the medical decision making process. - Radiology CXR Radiology Interpretation Completed By: Radiologist Summary of Radiographic Findings: IMPRESSION: COPD WITH PULMONARY FIBROTIC CHANGES. THIS REPORT WAS REVIEWED BY ED PHYSICIAN. Chest Pain Course/Dx - Course Course Of Treatment: Patient is a 74 y/o F presenting to [facility] with complaints of left chest pain. She reports this pain radiates to her left axilla, shoulder , upper back, and neck. Pain has been present for the past few days and is characterized as a pressure. Episodes of pain are intermittent but frequent. Pain is worse today and feels "deep". She notes pain onset when she was moving her birdcage; patient states that she has done this numerous times previously. Coughing, laughter, and palpation aggravate the pain. No similar previous episodes noted, patient denies Hx of cardiac issues. Patient is on Losartan for HTN. Hx of COPD noted, patient smoked for 53 years but has not done so for the past three. N/V and pain/swelling in legs are denied. No Hx of PE or DVT noted. NKDA reported. Patient only took 81 mg ASA today. On physical exam: tenderness over the left upper trapezius muscle, left sternal border and left axilla. CXR IMPRESSION: COPD WITH PULMONARY FIBROTIC CHANGES. Bloodwork was obtained, abnormal values include MCH 32, MPV 6.9, creatinine 1.22, glucose 121. First and second troponins were negative. Patient was discharged to home and PCP followup. - Diagnoses Provider Diagnoses: Chest wall pain Discharge ED - Sign-Out/Discharge Documenting (check all that apply): Patient Departure - discharge - Discharge Plan Condition: Stable Disposition: HOME Patient Education Materials: Chest Wall Pain (ED) Referrals: Jessi Almanza MD [Primary Care Provider] - 2 Days Additional Instructions: PLEASE RETURN TO ED FOR ANY NEW OR CONCERNING SYMPTOMS. PLEASE FOLLOW UP WITH YOUR PRIMARY CARE PHYSICIAN WITHIN TWO DAYS. - Billing Disposition and Condition Condition: STABLE Disposition: Home - Attestation Statements Document Initiated by Chacho: Yes Documenting Scribe: SUN PIPER Provider For Whom Chacho is Documenting (Include Credential): DUANE SMITH DO Scribe Attestation: SUN Rios scribed for DUANE SMITH DO on 12/08/19 at 1949. Scribe Documentation Reviewed: Yes Provider Attestation: The documentation as recorded by the SUN woodall accurately reflects the service I personally performed and the decisions made by DUANE yousif DO Status of Scribe Document: Viewed
[2019-12-08 15:31] LABS: Albumin 4.3 g/dL (3.2-5.2); Albumin/Globulin Ratio 1.5 (1-3); BUN/Creatinine Ratio 15.6 (8-20); Calcium 9.4 mg/dL (8.6-10.3); EGFR African American 52.3 (>60); EGFR Non-African American 43.2 (>60); Globulin 2.9 g/dL (2-4); Magnesium 1.9 mg/dL (1.9-2.7); Potassium 3.9 mmol/L (3.5-5.0); Total Bilirubin 0.4 mg/dL (0.2-1.0); Total Protein 7.2 g/dL (6.4-8.9)
[2019-12-08 18:09] VITALS: BP 153/65
== END 2019-12-08 18:09 | disposition home or self-care (01) ==
LOC: ED 14:17
DX: R07.89 Other chest pain (principal); I10 Essential (primary) hypertension; J44.9 Chronic obstructive pulmonary disease, unspecified; K21.9 Gastro-esophageal reflux disease without esophagitis; Z87.442 Personal history of urinary calculi; Z87.891 Personal history of nicotine dependence; Z79.82 Long term (current) use of aspirin; Z79.899 Other long term (current) drug therapy
CPT/HCPCS: 36415; 71046; 80053; 83735; 84484; 85025; 99282

== ENCOUNTER 2020-01-03 07:57 | Day surgery (SDC) | payer MEDICARE ==
--- NOTE | 2019-12-31 19:09 | HP ---
PREOPERATIVE HISTORY AND PHYSICAL: DATE OF ADMISSION: 01/02/19 [facility] ADMITTING PHYSICIAN: Dr. Chelsey Rojas.* (DICTATED BY ENMANUEL PERDOMO) CHIEF COMPLAINT: Left hand numbness and tingling. HISTORY OF PRESENT ILLNESS: This is a 74-year-old female who presented to Dr. Rojas's clinic with carpal tunnel symptoms that were similar to her right hand. She has had trouble for approximately 2-1/2 weeks recently, but has had prior symptoms. When she does not use her hand, her pain is relieved. The pain radiates up the arm and could be 6/10. She feels as though her fingers are uncoordinated and she has difficulty doing activities with them or lifting objections and she is seeking surgical intervention with Dr. Rojas at this time. PAST MEDICAL HISTORY: COPD, hypertension, GERD, and hematuria. PAST SURGICAL HISTORY: section, tonsillectomy, cataract removal, carpal tunnel release, cholecystectomy, and right hip surgery. She denies anesthetic complications with any of these procedures and she has not had a blood clot related to any of them. CURRENT MEDICATIONS: 1. Aspirin 81 mg 1 p.o. by mouth daily. 2. Albuterol sulfate 0.63 mg/3 mL 1 vial via nebulizer 2 times daily p.r.n. 3. Symbicort 80/4.5 mcg/ACT 2 puffs twice daily. 4. Flonase Allergy Relief 50 mcg/ACT spray, 1 spray to each nostril twice daily. 5. Incruse Ellipta 62.5 mcg per inhalation inhaled 1 puff by mouth daily. 6. Omeprazole 20 mg 1 tab by mouth daily. 7. Ventolin HFA 108 (90 base) mcg/ACT inhaled 2 puffs by mouth every 4 to 6 hours p.r.n. 8. Losartan potassium 25 mg 1 tab by mouth daily. ALLERGIES: No known drug allergies. REVIEW OF SYSTEMS: Fourteen systems are reviewed with the patient and are significant for chest pain that was evaluated at the emergency room and found to not be cardiac in nature, shortness of breath due to COPD, history of a wrist fracture as well as hematuria that is followed by Dr. De La Garza. Systems are otherwise negative for cephalic, cardiovascular, respiratory, gastrointestinal, genitourinary, or other musculoskeletal, neurologic, endocrine , and hematologic symptoms. PHYSICAL EXAMINATION GENERAL: She is a well-developed, well-nourished female, seated on exam table, in no acute distress with appropriate affect. VITAL SIGNS: Height 59 inches, weight 150 pounds. Pulse 97, blood pressure 142 /78. HEENT: Normocephalic, atraumatic. Hearing and vision are grossly intact with extraocular movements intact. NECK: The trachea is midline and symmetrical. LUNGS: Clear to auscultation. No wheezes, rales, or rhonchi noted. CARDIO: Regular rate and rhythm. Normal S1, S2. No murmurs, rubs, or gallops appreciated. ABDOMEN: Nondistended. Bowel sounds present. MUSCULOSKELETAL: Left hand: Normal sensation in the median nerve distribution to light touch. Negative Tinel's sign of the ulnar nerve at the elbow, but positive Tinel's at the median nerve of the wrist. She can flex and extend her wrist well and make a full fist. She has normal elbow motion and normal shoulder motion. No significant pain or numbness with neck motion and a 2+ radial pulse. ASSESSMENT: Left carpal tunnel syndrome. PLAN: Left carpal tunnel released with Dr. Rojas. The patient's questions were answered. She will follow up 10 days postoperatively and call with questions or concerns otherwise. ENMANUEL PERDOMO [id number]/[facility] #: [id number] MTDZach
[~2020-01-03 07:57] MED LIST changes: -Buffered Lidocaine 0.9% SYRIN* 5 ML/SYR SYRINGE INTRADERM ONE; +Buffered Lidocaine 1% SYRIN* 1 ML/SYRINGE INTRADERM ONE; +Lactated Ringers 1000 ML Bag* 1,000 ML IV SCH
[2020-01-03] MEDS ORDERED: Lidocaine 1% INJ* 10 MG/ML 30 ML SDV ONE (09:27)
[2020-01-03] MEDS ORDERED: Propofol* 10 MG/ML 20 ML BTL ONE (09:28)
[2020-01-03] MEDS ORDERED: Lidocaine 2% PF * 5 ML VIAL ONE (09:28)
[2020-01-03] MEDS ORDERED: fentaNYL* 50 MCG/ML 2 ML VIAL (100 MCG VIAL) ONE (09:28)
[2020-01-03] MEDS ORDERED: Ibuprofen TAB* 600 MG ONE (10:47)
[2020-01-03 10:51] VITALS: BP 139/107
--- NOTE | 2020-01-03 11:15 | OP ---
DATE OF OPERATION: 01/03/20 [facility] DATE OF : 47 SURGEON: Chelsey Rojas MD BRIM BLOCKER: ENMANUEL Vargas ANESTHESIA: Local MAC. PRE-OP DIAGNOSIS: Left carpal tunnel syndrome. POST-OP DIAGNOSIS: Left carpal tunnel syndrome. OPERATIVE PROCEDURE: Left carpal tunnel release. ESTIMATED BLOOD LOSS: Zero. TOURNIQUET TIME: About 10 minutes. INDICATION FOR PROCEDURE: Rowan is a 74-year-old female who has numbness and tingling in the median nerve distribution of the left hand. She presents for left carpal tunnel release. DESCRIPTION OF PROCEDURE: The patient was brought to the operating room and was given a sedation anesthetic and a local infiltration with 10 cc of 1% plain lidocaine in the palm of her left hand. The skin of her left hand and forearm was prepped and draped in the usual sterile fashion. The hand and forearm were exsanguinated and the tourniquet elevated to 250 mmHg. A longitudinal incision was made in the palm in line with the ring finger. We dissected through the subcutaneous tissue down to the transverse carpal ligament. The ligament was divided sharply with the knife and then more proximally with the scissors. The nerve was dissected free from its surrounding tissue and there was an area of moderate compression at the midportion of the ligament. The wound was irrigated and the skin edges reapproximated with 4-0 nylon suture. The wound was dressed with Xeroform, 4x4, Webril, and an Brayan wrap. The patient tolerated the procedure well and was brought to the recovery room in good condition. [id number]/[facility] #: [id number] [facility]
== END 2020-01-03 11:13 | disposition home or self-care (01) ==
LOC: OREAST 07:57
PROVIDERS: ATTEND Orthopaedic Surgery
DX: G56.02 Carpal tunnel syndrome, left upper limb (principal); J44.9 Chronic obstructive pulmonary disease, unspecified; I10 Essential (primary) hypertension; K21.9 Gastro-esophageal reflux disease without esophagitis; R31.9 Hematuria, unspecified
CPT/HCPCS: A9270-GY; J2704; J3010

== ENCOUNTER 2020-10-22 12:24 | Observation (INO) ==
[2020-10-22] MEDS ORDERED: NS 0.9% 1000 ml BAG 1,000 ML IV ONE ×2 (12:54→15:23)
[2020-10-22 14:18] LABS: ABS Monocytes 0.5 10^3/ul (0-0.8); ABS Neutrophils 4.5 10^3/ul (1.5-7.7); Hematocrit 37 % (35-47); Hemoglobin 12.6 g/dL (12.0-16.0); Lymphocyte % 17.2 %; Mean Corpuscular HGB Conc 34 g/dL (31-36); Mean Corpuscular Hemoglobin 31 pg (27-31); Mean Corpuscular Volume 90 fL (80-97); Mean Platelet Volume 7.3 fL (7.4-10.4); Nucleated Red Blood Cells % 0.2; Platelet Count 215 10^3/uL (150-450); Red Blood Count 4.14 10^6 /uL (3.70-4.87); Red Cell Distribution Width 13 % (10-15)
[2020-10-22 14:26] LABS: Activated Partial Thrombo Time 31.1 seconds (26.0-38.0); INR 1.06 (0.82-1.09)
[2020-10-22 14:32] LABS: Albumin/Globulin Ratio 1.4 (1-3); C Reactive Protein 13.54 mg/L (<8.01); Calcium 8.6 mg/dL (8.6-10.3); EGFR African American 33.7 (>60); EGFR Non-African American 27.9 (>60); Globulin 2.8 g/dL (2-4); Potassium 3.4 mmol/L (3.5-5.0); Total Bilirubin 0.4 mg/dL (0.2-1.0); Total Protein 6.8 g/dL (6.4-8.9)
[2020-10-22 14:33] LABS: Troponin I 0.01 ng/mL (<0.03)
[2020-10-22 14:50] LABS: Ferritin 307.9 ng/mL (11-307)
[2020-10-22 15:28] LABS: Influenza A Molecular Negative (Negative); Influenza B Molecular Negative (Negative)
[2020-10-22 16:01] LABS: Magnesium 1.7 mg/dL (1.9-2.7)
[2020-10-22 16:11] LABS: Urine Appearance Cloudy; Urine Bilirubin Negative (Negative); Urine Blood 2+ (Negative); Urine Color Yellow; Urine Glucose Negative (Negative); Urine Ketones Trace (Negative); Urine Nitrite Negative (Negative); Urine Protein Negative (Negative); Urine Specific Gravity 1.009 (1.010-1.030); Urine Urobilinogen Negative (Negative)
[2020-10-22 16:33] LABS: Urine Bacteria Absent (Absent); Urine Red Blood Cell Trace(0-2/hpf) (Absent); Urine Squamous Epithelial Cell Present (Absent); Urine White Blood Cell Trace(0-5/hpf) (Absent)
[2020-10-22] MEDS ORDERED: Al Hydrox/Mg Hydrox/Simet LIQ 30 ML UDC PO PRN (16:55)
[2020-10-22] MEDS ORDERED: NS 0.9% 1000 ml BAG 1,000 ML IV SCH (17:00)
[2020-10-22] MEDS ORDERED: Albuterol HFA INHALER 8 gm MDI INH PRN (17:04)
[2020-10-22] MEDS ORDERED: Magnesium Sulfate 2 gm BAG 2 GM/50 ML BAG IVPB ONE (17:06)
[2020-10-22] MEDS ORDERED: Remdesivir 100 mg Vial 200 MG in NS 0.9% 250 ml 210 ML IV ONE (17:08)
[2020-10-22] MEDS ORDERED: Enoxaparin 40 MG/0.4 ML SYR SUBCUT SCH (18:00)
[2020-10-22 18:31] LABS: Urine Appearance Cloudy; Urine Bilirubin Negative (Negative); Urine Blood 2+ (Negative); Urine Color Yellow; Urine Glucose Negative (Negative); Urine Ketones Trace (Negative); Urine Nitrite Negative (Negative); Urine Protein Negative (Negative); Urine Specific Gravity 1.006 (1.010-1.030); Urine Urobilinogen Negative (Negative)
[2020-10-22 18:54] LABS: Urine Bacteria 1+ (Absent); Urine Red Blood Cell Trace(0-2/hpf) (Absent); Urine Squamous Epithelial Cell Present (Absent); Urine White Blood Cell Trace(0-5/hpf) (Absent)
[2020-10-22] MEDS: Mometasone/Formoter 100/5 MDI INH SCH (21:41)
[2020-10-22] MEDS: KCL 20 MEQ/100 ML IVPREMIX 20 MEQ/100 ML BAG IV SCH (22:40)
[2020-10-23] MEDS: KCL 20 MEQ/100 ML IVPREMIX 20 MEQ/100 ML BAG IV SCH (02:05)
[2020-10-23 06:52] LABS: ABS Lymphocytes 1.4 10^3/ul (1.0-4.8); ABS Monocytes 0.3 10^3/ul (0-0.8); ABS Neutrophils 3.1 10^3/ul (1.5-7.7); Hematocrit 36 % (35-47); Hemoglobin 12.3 g/dL (12.0-16.0); Lymphocyte % 29.3 %; Mean Corpuscular HGB Conc 34 g/dL (31-36); Mean Corpuscular Hemoglobin 31 pg (27-31); Mean Corpuscular Volume 91 fL (80-97); Nucleated Red Blood Cells % 0.2; Platelet Count 188 10^3/uL (150-450); Red Cell Distribution Width 13 % (10-15); White Blood Count 4.9 10^3/uL (3.5-10.8)
[2020-10-23 07:09] LABS: BUN/Creatinine Ratio 19.5 (8-20); Calcium 7.5 mg/dL (8.6-10.3); EGFR African American 54.2 (>60); EGFR Non-African American 44.8 (>60); Potassium 4.2 mmol/L (3.5-5.0)
[2020-10-23] MEDS: Mometasone/Formoter 100/5 MDI INH SCH (08:30)
[2020-10-23] MEDS ORDERED: Fluticasone NASAL SPRAY 50MCG 16 gm SPRAY BTL BOTH NARES SCH (09:00)
[2020-10-23] MEDS ORDERED: SPIRIVA Respimat (tiotropium) 2.5 mcg/inh Inhaler INH SCH (09:00)
[2020-10-23] MEDS ORDERED: NS 0.9% 1000 ml BAG 1,000 ML IV SCH (11:00)
[2020-10-23 12:23] VITALS: BP 140/60
[2020-10-23 14:37] LABS: BUN/Creatinine Ratio 19.3 (8-20); Calcium 7.6 mg/dL (8.6-10.3); EGFR African American 56.4 (>60); EGFR Non-African American 46.6 (>60); Potassium 3.5 mmol/L (3.5-5.0)
[2020-10-23] MEDS ORDERED: Remdesivir 100 mg Vial 100 MG in NS 0.9% 250 ml 230 ML IV SCH (21:00)
== END 2020-10-23 16:20 | disposition home or self-care (01) ==
LOC: ED 12:24 → MED 12:24
PROVIDERS: ADMIT Internal Medicine; ATTEND Internal Medicine

== ENCOUNTER 2020-10-29 11:18 | Inpatient (IN) ==
[2020-10-29] MEDS ORDERED: Albuterol HFA INHALER 8 gm MDI INH ONE (11:37)
[2020-10-29] MEDS ORDERED: Dexamethasone IV 4 MG/ML VIAL 1 ml VIAL IV SLOW PU ONE (11:37)
[2020-10-29 12:37] LABS: ABS Lymphocytes 1.3 10^3/ul (1.0-4.8); ABS Monocytes 0.6 10^3/ul (0-0.8); ABS Neutrophils 4.1 10^3/ul (1.5-7.7); Eosinophil % 0.6 %; Hematocrit 34 % (35-47); Hemoglobin 11.6 g/dL (12.0-16.0); Lymphocyte % 21.3 %; Mean Corpuscular HGB Conc 34 g/dL (31-36); Mean Corpuscular Hemoglobin 31 pg (27-31); Mean Corpuscular Volume 90 fL (80-97); Mean Platelet Volume 6.7 fL (7.4-10.4); Platelet Count 292 10^3/uL (150-450); Red Blood Count 3.76 10^6 /uL (3.70-4.87); Red Cell Distribution Width 14 % (10-15); White Blood Count 5.9 10^3/uL (3.5-10.8)
[2020-10-29 12:59] LABS: Influenza A Molecular Negative (Negative); Influenza B Molecular Negative (Negative)
[2020-10-29 13:03] LABS: Activated Partial Thrombo Time 30.4 seconds (26.0-38.0); INR 1.07 (0.82-1.09)
[2020-10-29 13:06] LABS: Troponin I 0.01 ng/mL (<0.03)
[2020-10-29 13:07] LABS: Albumin 3.7 g/dL (3.2-5.2); Calcium 8.5 mg/dL (8.6-10.3); Potassium 3.3 mmol/L (3.5-5.0); Total Bilirubin 0.6 mg/dL (0.2-1.0)
[2020-10-29 13:13] LABS: Albumin/Globulin Ratio 1.1 (1-3); BUN/Creatinine Ratio 10.4 (8-20); C Reactive Protein 90.48 mg/L (<8.01); EGFR African American 68.7 (>60); EGFR Non-African American 56.8 (>60); Globulin 3.3 g/dL (2-4)
[2020-10-29 13:23] LABS: Ferritin 529.7 ng/mL (11-307)
[2020-10-29] MEDS ORDERED: cefTRIAXone 1 gm/50 mL NS BAG 1 GM/50 ML BAG IV ONE (13:44)
[2020-10-29] MEDS ORDERED: Azithromycin 500 mg/250 ml NS 500 MG/250 ML BAG IVPB ONE (13:44)
[2020-10-29] MEDS ORDERED: Iodixanol (CONTRAST) 320 MG/ML 100 ML SDV IV ONE (13:48)
[2020-10-29] MEDS ORDERED: NS 0.9% 1000 ml BAG 1,000 ML IV SCH (14:45)
[2020-10-29] MEDS ORDERED: Albuterol HFA INHALER 8 gm MDI INH PRN (16:26)
[2020-10-29] MEDS: Enoxaparin 40 MG/0.4 ML SYR SUBCUT SCH (17:16)
[2020-10-29 17:22] LABS: Urine Appearance Clear; Urine Bilirubin Negative (Negative); Urine Blood 1+ (Negative); Urine Color Straw; Urine Glucose 2+(150 mg/dL) (Negative); Urine Ketones Trace (Negative); Urine Nitrite Negative (Negative); Urine Protein Negative (Negative); Urine Specific Gravity 1.028 (1.010-1.030); Urine Urobilinogen Negative (Negative)
[2020-10-29 17:26] LABS: Urine Bacteria Absent (Absent); Urine Red Blood Cell 1+(3-5/hpf) (Absent); Urine White Blood Cell Absent (Absent)
[2020-10-29] MEDS ORDERED: Potassium Chlor 10 meq TAB PO ONE (19:05)
[2020-10-29] MEDS: Mometasone/Formoter 100/5 MDI INH SCH (20:20)
[2020-10-30 05:57] LABS: ABS Lymphocytes 0.6 10^3/ul (1.0-4.8); ABS Monocytes 0.4 10^3/ul (0-0.8); ABS Neutrophils 1.6 10^3/ul (1.5-7.7); Hematocrit 30 % (35-47); Hemoglobin 10.3 g/dL (12.0-16.0); Lymphocyte % 24.3 %; Mean Corpuscular HGB Conc 34 g/dL (31-36); Mean Corpuscular Hemoglobin 31 pg (27-31); Mean Corpuscular Volume 90 fL (80-97); Mean Platelet Volume 6.4 fL (7.4-10.4); Nucleated Red Blood Cells % 0.2; Platelet Count 308 10^3/uL (150-450); Red Blood Count 3.36 10^6 /uL (3.70-4.87); Red Cell Distribution Width 13 % (10-15); White Blood Count 2.7 10^3/uL (3.5-10.8)
[2020-10-30 06:24] LABS: BUN/Creatinine Ratio 10.9 (8-20); Calcium 7.9 mg/dL (8.6-10.3); EGFR African American 72.2 (>60); EGFR Non-African American 59.7 (>60); Magnesium 1.6 mg/dL (1.9-2.7); Potassium 4.2 mmol/L (3.5-5.0)
[2020-10-30] MEDS ORDERED: Magnesium Sulfate IV 3 GM in NS 0.9% 100 ml BAG 100 ML IVPB ONE (08:00)
[2020-10-30] MEDS: SPIRIVA Respimat (tiotropium) 2.5 mcg/inh Inhaler INH SCH (08:57)
[2020-10-30] MEDS: Mometasone/Formoter 100/5 MDI INH SCH ×2 (08:57→20:03)
[2020-10-30] MEDS: Fluticasone NASAL SPRAY 50MCG 16 gm SPRAY BTL BOTH NARES SCH (11:30)
[2020-10-30] MEDS: cefTRIAXone 1 gm/50 mL NS BAG 1 GM/50 ML BAG IVPB SCH (15:30)
[2020-10-30] MEDS: Azithromycin 500 mg/250 ml NS 500 MG/250 ML BAG IVPB SCH (16:52)
[2020-10-30] MEDS: Enoxaparin 40 MG/0.4 ML SYR SUBCUT SCH (18:29)
[2020-10-31 05:55] LABS: ABS Monocytes 0.7 10^3/ul (0-0.8); ABS Neutrophils 4.1 10^3/ul (1.5-7.7); Hematocrit 31 % (35-47); Hemoglobin 10.7 g/dL (12.0-16.0); Mean Corpuscular HGB Conc 34 g/dL (31-36); Mean Corpuscular Hemoglobin 31 pg (27-31); Mean Corpuscular Volume 91 fL (80-97); Mean Platelet Volume 6.5 fL (7.4-10.4); Platelet Count 385 10^3/uL (150-450); Red Blood Count 3.47 10^6 /uL (3.70-4.87); Red Cell Distribution Width 13 % (10-15); White Blood Count 5.7 10^3/uL (3.5-10.8)
[2020-10-31 06:09] LABS: BUN/Creatinine Ratio 13.5 (8-20); Calcium 8.1 mg/dL (8.6-10.3); EGFR African American 68.7 (>60); EGFR Non-African American 56.8 (>60); Magnesium 2.1 mg/dL (1.9-2.7); Potassium 4.2 mmol/L (3.5-5.0)
[2020-10-31] MEDS: SPIRIVA Respimat (tiotropium) 2.5 mcg/inh Inhaler INH SCH (07:56)
[2020-10-31] MEDS: Mometasone/Formoter 100/5 MDI INH SCH ×2 (07:56→20:45)
[2020-10-31] MEDS: Fluticasone NASAL SPRAY 50MCG 16 gm SPRAY BTL BOTH NARES SCH (09:20)
[2020-10-31] MEDS ORDERED: LORazepam 2 mg VIAL 1 ml IV PUSH ONE (10:45)
[2020-10-31] MEDS ORDERED: Lorazepam PYXIS KEY PRN (10:45)
[2020-10-31] MEDS: cefTRIAXone 1 gm/50 mL NS BAG 1 GM/50 ML BAG IVPB SCH (15:18)
[2020-10-31] MEDS: Azithromycin 500 mg/250 ml NS 500 MG/250 ML BAG IVPB SCH (17:10)
[2020-10-31] MEDS: Enoxaparin 40 MG/0.4 ML SYR SUBCUT SCH (18:23)
[2020-11-01] MEDS: Mometasone/Formoter 100/5 MDI INH SCH (08:16)
[2020-11-01] MEDS: SPIRIVA Respimat (tiotropium) 2.5 mcg/inh Inhaler INH SCH (08:16)
[2020-11-01] MEDS: Fluticasone NASAL SPRAY 50MCG 16 gm SPRAY BTL BOTH NARES SCH (09:45)
[2020-11-01 11:02] VITALS: BP 136/72
== END 2020-11-01 13:00 | disposition home or self-care (01) | DRG 177 ==
LOC: ED 11:18 → MED 11:18
PROVIDERS: ADMIT Internal Medicine; ATTEND Internal Medicine

== ENCOUNTER 2024-08-31 13:05 | Observation (INO) ==
[2024-08-31 13:54] LABS: ABS Lymphocytes 1.2 10^3/uL (1.0-4.8); ABS Monocytes 0.6 10^3/uL (0.0-0.9); ABS Neutrophils 3.5 10^3/uL (1.5-7.6); ABS Nucleated RBC 0.01 10^3/ul; Eosinophil % 0.3 %; Lymphocyte % 22.7 %; Mean Corpuscular Hemoglobin 30.5 pg (27-33); Mean Corpuscular Hgb Conc 33.3 g/dL (31-36); Mean Corpuscular Volume 91.4 fL (80-97); Nucleated Red Blood Cells % 0.2 %/100WBC (0.0-0.8); Platelet Count 211 10^3/uL (150-450); Red Blood Count 3.94 10^6/uL (3.63-4.92); Red Cell Distribution Width 14.4 % (12-17); White Blood Count 5.5 10^3/uL (3.8-11.8)
[2024-08-31 14:00] LABS: INR 1.43 (0.85-1.14)
[2024-08-31 14:17] LABS: High Sens Troponin Baseline < 3 pg/mL (<15)
[2024-08-31 14:36] LABS: ALT 17 U/L (7-52); Albumin/Globulin Ratio 1.5 (1-3); Alkaline Phosphatase 79 U/L (35-149); Anion Gap 8 mmol/L (2-16); Blood Urea Nitrogen 17 mg/dL (6-24); CO2 Carbon Dioxide 24 mmol/L (22-32); Calcium 8.7 mg/dL (8.6-10.3); Chloride 101 mmol/L (101-111); Creatinine, Serum 1.26 mg/dL (0.51-0.95); Globulin 2.6 g/dL (2-4); Glucose 118 mg/dL (70-100); Sodium 133 mmol/L (135-145); Total Bilirubin 0.5 mg/dL (0.2-1.0); Total Protein 6.6 g/dL (6.4-8.9); eGFR CKD-EPI 43.7 (>60)
[2024-08-31 15:04] LABS: Urine Appearance Clear; Urine Bilirubin Negative (Negative); Urine Blood 2+ (Negative); Urine Color Light-Yellow; Urine Glucose Negative (Negative); Urine Ketones 1+ (Negative); Urine Nitrite Negative (Negative); Urine Protein Negative (Negative); Urine Specific Gravity 1.013 (1.002-1.030); Urine Urobilinogen Negative (Negative)
[2024-08-31 15:07] LABS: Urine Bacteria Absent /HPF (Absent); Urine Red Blood Cell 3+(>10/hpf) /HPF (0-Trace); Urine Squamous Epithelial Cell Present /HPF (Absent); Urine White Blood Cell Trace(0-5/hpf) /HPF (0-Trace)
[2024-08-31] MEDS: Iodixanol 320 (CONTRAST) 100 ML SDV IV ONE (15:21)
[2024-08-31 15:28] LABS: High Sensitivity Troponin 1 Hr 4 pg/mL (<15)
[2024-08-31] MEDS ORDERED: Sulfur Hexaflouride MICROSPHR 25 MG VIAL IV PRN (17:10)
[2024-08-31 21:42] LABS: Potassium Redraw 4.3 mmol/L (3.5-5.0)
[2024-08-31] MEDS: Fluticasone NASAL SPRAY 50MCG 16 gm SPRAY BTL BOTH NARES SCH (21:50)
[2024-08-31] MEDS: Mometasone/Formoter 100/5 MDI INH SCH (21:50)
[2024-09-01 06:35] LABS: ABS Lymphocytes 1.8 10^3/uL (1.0-4.8); ABS Monocytes 0.6 10^3/uL (0.0-0.9); ABS Neutrophils 1.9 10^3/uL (1.5-7.6); ABS Nucleated RBC 0.01 10^3/ul; Eosinophil % 0.4 %; Hematocrit 35.5 % (35-45); Lymphocyte % 41.1 %; Mean Corpuscular Hemoglobin 31.1 pg (27-33); Mean Corpuscular Hgb Conc 33.8 g/dL (31-36); Mean Corpuscular Volume 92.1 fL (80-97); Nucleated Red Blood Cells % 0.2 %/100WBC (0.0-0.8); Platelet Count 195 10^3/uL (150-450); Red Blood Count 3.86 10^6/uL (3.63-4.92); Red Cell Distribution Width 14.1 % (12-17); White Blood Count 4.4 10^3/uL (3.8-11.8)
[2024-09-01 07:13] LABS: Calcium 8.7 mg/dL (8.6-10.3); Creatinine, Serum 1.25 mg/dL (0.51-0.95); Magnesium 1.7 mg/dL (1.9-2.7); Potassium 4.2 mmol/L (3.5-5.0); eGFR CKD-EPI 44.1 (>60)
[2024-09-01] MEDS: SPIRIVA Respimat (tiotropium) 2.5 mcg/inh Inhaler INH SCH (07:54)
[2024-09-01] MEDS: Vitamin THERAPEUTIC TAB PO SCH (09:06)
[2024-09-01] MEDS: Magnesium Sulfate 2 gm BAG 2 GM/50 ML BAG IVPB ONE (09:06)
[2024-09-01] MEDS: Lactated Ringers 1000 ml BAG 1,000 ML IV ONE (10:48)
[2024-09-01] MEDS: Albuterol HFA INHALER 8 gm MDI INH PRN (17:47)
[2024-09-02 07:32] LABS: Calcium 8.3 mg/dL (8.6-10.3); Creatinine, Serum 1.14 mg/dL (0.51-0.95); Magnesium 1.9 mg/dL (1.9-2.7); Potassium 4.2 mmol/L (3.5-5.0); eGFR CKD-EPI 49.3 (>60)
[2024-09-03 06:53] LABS: Calcium 8.5 mg/dL (8.6-10.3); Creatinine, Serum 1.13 mg/dL (0.51-0.95); Magnesium 1.8 mg/dL (1.9-2.7); Potassium 4.3 mmol/L (3.5-5.0); eGFR CKD-EPI 49.8 (>60)
[2024-09-03] MEDS: Magnesium Sulfate IV 1GM/100ML 1 GM/100 ML BAG IV ONE (09:05)
[2024-09-03 12:59] VITALS: BP 134/84
== END 2024-09-03 15:46 | disposition home or self-care (01) ==
LOC: ED 13:05 → EDHOLD 13:05 → MEDTELE 21:26
PROVIDERS: ADMIT Hospitalist; ATTEND Hospitalist